=== PATIENT | female | born 1990 | race African-American/Black ===

== ENCOUNTER 2018-01-26 10:15 | Emergency (ER) | payer OTHER ==
[2018-01-26 13:16] LABS: Urine Blood NEGATIVE (NEG); Urine Glucose NEGATIVE (NEG); Urine Protein TRACE (NEG); Urine Specific Gravity 1.025 (1.005-1.030)
[2018-01-26 13:19] LABS: Absolute Lymphocytes (CBC) 0.9 K/uL (0.7-4.9); Absolute Monocytes 0.4 K/uL (0.1-1.3); Absolute Neutrophil 5.1 K/uL (1.8-8.0); Basophils % 0.4 % (0-1.3); Eosinophils % 0.9 % (0-4.4); Hematocrit 32.3 % (36.0-45.0); Lymphocytes % 13.3 % (15.3-44.8); MCV 74.8 fL (80-100); MPV 9.1 fL (7.6-11.3); Monocytes % 6.4 % (3.3-12.3); RBC Red Blood Cell Count 4.32 M/uL (3.86-4.86)
[2018-01-26] MEDS ORDERED: NA CHLORIDE 0.9% 1,000 ML ONE ×2 (13:20→14:04)
[2018-01-26 13:39] LABS: Bicarbonate 20 mEq/L (21-31); Glucose Level 66 mg/dL (65-120); Potassium 3.4 mEq/L (3.6-5.0); Sodium Level 136 mEq/L (135-145)
[2018-01-26 13:41] LABS: BUN Blood Urea Nitrogen < 5 mg/dL (6-20)
[2018-01-26] MEDS ORDERED: POTASSIUM CL SA 10 MEQ TAB PO ONE (14:03)
--- NOTE | 2018-01-26 14:35 | ER ---
Nurse's Notes [facility] Name: Lalitha Edouard Age: 27 yrs Sex: Female : 1990 Arrival Date: 01/26/2018 Time: 10:16 Bed 15 Private MD: Diagnosis: Vomiting of , unspecified Presentation: 01/26 10:44 Presenting complaint: Patient states: Sent by Dr Lawrence to have labs and fluids. Patient aj is 33 weeks , reports N/V and headaches since Wednesday. Transition of care: patient was not received from another setting of care. Onset of symptoms was January 24, 2018. Initial Sepsis Screen: Does the patient meet any 2 criteria? No. Patient's initial sepsis screen is negative. Does the patient have a suspected source of infection? No. Patient's initial sepsis screen is negative. Care prior to arrival: None. 10:44 Method Of Arrival: Ambulatory 10:44 Acuity: JUAN PABLO 3 aj Triage Assessment: 10:46 General: Appears in no apparent distress. comfortable, Behavior is calm, cooperative, aj appropriate for age. Pain: Complains of pain in face and scalp Pain currently is 6 out of 10 on a pain scale. Neuro: Level of Consciousness is awake, alert, obeys commands, Oriented to person, place, time, situation, Appropriate for age. Respiratory: Airway is patent Respiratory effort is even, unlabored, Respiratory pattern is regular, symmetrical. GI: Reports nausea, vomiting. Derm: Skin is intact, is healthy with good turgor, Skin is pink, warm \T\ dry. normal. 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 - Social history:: Smoking status: Patient/guardian denies using tobacco. Screenin:00 Abuse screen: Denies threats or abuse. Denies injuries from another. Nutritional jl7 screening: No deficits noted. Tuberculosis screening: No symptoms or risk factors identified. Fall Risk IV access (20 points). Total Yang Fall Scale indicates No Risk (0-24 pts). Assessment: 13:00 General: Appears in no apparent distress. uncomfortable, Behavior is calm, cooperative. jl7 Pain: Complains of pain in right upper quadrant and left upper quadrant Pain does not radiate. Quality of pain is described as crampy, Is continuous. Neuro: Level of Consciousness is awake, alert, obeys commands, Oriented to person, place, time, situation. Cardiovascular: Patient's skin is warm and dry. Respiratory: Airway is patent Respiratory effort is even, unlabored, Respiratory pattern is regular, symmetrical. GI: Abdomen is round Bowel sounds present X 4 quads. Reports nausea, vomiting, Patient currently denies diarrhea. : No signs and/or symptoms were reported regarding the genitourinary system. EENT: No signs and/or symptoms were reported regarding the EENT system. Derm: Skin is dry, Skin is normal, Skin temperature is warm. Musculoskeletal: No signs and/or symptoms reported regarding the musculoskeletal system. 14:00 Reassessment: No changes from previously documented assessment. Patient and/or family jl7 updated on plan of care and expected duration. Pain level reassessed. Patient is alert, oriented x 3, equal unlabored respirations, skin warm/dry/pink. 14:53 Reassessment: awaiting bolus infusion to complete before discharge. jl7 Vital Signs: 10:42 BP 110 / 65 Sitting; Pulse 81; Resp 18; Temp 98.6; Pulse Ox 100% on R/A; Weight 74.84 aj kg; Height 5 ft. 8 in. (172.72 cm); Pain 6/10; 10:44 BP 109 / 73 Standing; Pulse 71; aj 12:50 BP 108 / 69; Pulse 70; Resp 16 S; Pulse Ox 100% on R/A; jl7 13:00 BP 104 / 68; Pulse 72; Resp 16; Pulse Ox 100% ; jl7 13:39 BP 96 / 68; Pulse 70; Resp 16; Pulse Ox 100% on R/A; jl7 14:30 BP 102 / 66; Pulse 63; Resp 16 S; Pulse Ox 100% on R/A; jl7 15:00 BP 111 / 73; Pulse 77; Resp 16; Pulse Ox 100% on R/A; jl7 15:45 BP 94 / 60; Pulse 72; Resp 16; Pulse Ox 100% ; jl7 10:42 Body Mass Index 25.09 (74.84 kg, 172.72 cm) aj Vitals: 13:37 Heart Tones 152 bpm. jl7 ED Course: 10:16 Patient arrived in ED. as 10:44 Arm band placed on left wrist. Patient placed in waiting room, Patient notified of wait aj time. 10:46 Triage completed. aj 10:48 Ivone Casiano FNP-C is PHCP. kb 10:48 Jaciel Crane MD is Attending Physician. kb 12:39 Yaw Valenzuela RN is Primary Nurse. jl7 13:00 Patient has correct armband on for positive identification. Bed in low position. Call jl7 light in reach. Side rails up X 1. Pulse ox on. NIBP on. 13:00 Initial lab(s) drawn, by me, sent to lab. Urine collected: clean catch specimen, clear. jl7 Inserted saline lock: 20 gauge in right antecubital area, using aseptic technique. Blood collected. 14:34 Rell Lawrence MD is Referral Physician. kb 15:57 No provider procedures requiring assistance completed. IV discontinued, intact, jl7 bleeding controlled, No redness/swelling at site. Pressure dressing applied. Administered Medications: 13:24 Drug: NS 0.9% 1000 ml Route: IV; Rate: 1000 ml; Site: right antecubital; jl7 15:53 Follow up: IV Status: Completed infusion jl7 14:10 Drug: Potassium Chloride 20 mEq Route: PO; jl7 15:52 Follow up: Response: No adverse reaction jl7 14:11 Drug: NS 0.9% 1000 ml Route: IV; Rate: 1000 ml; Site: right antecubital; jl7 15:54 Follow up: IV Status: Completed infusion jl7 15:51 Drug: Tylenol 650 mg Route: PO; jl7 15:52 Follow up: Response: Medication administered at discharge. jl7 Outcome: 14:35 Discharge ordered by . kb 15:57 Discharged to home ambulatory. jl7 15:57 Condition: stable 15:57 Discharge instructions given to patient, Instructed on discharge instructions, follow up and referral plans. medication usage, Demonstrated understanding of instructions, follow-up care, medications, Prescriptions given X 1. 15:58 Patient left the ED. jl7 Signatures: Ivone Casiano FNP-C FNP-Ckb Myers Kate, RN RN Mary Smith Jahala, RN RN jl7 Corrections: (The following items were deleted from the chart) 10:49 10:44 Acuity: JUAN PABLO 4 trev karimi
--- NOTE | 2018-01-26 14:36 | EDPHYS ---
Physician Documentation [facility] Name: Lalitha Edouard Age: 27 yrs Sex: Female : 1990 Arrival Date: 01/26/2018 Time: 10:16 Bed 15 Private MD: ED Physician Jaciel Crane HPI: 01/26 14:33 This 27 yrs old Black Female presents to ER via Ambulatory with complaints of kb Nausea/Vomiting, Headache. 14:33 The patient presents to the emergency department with nausea, vomiting, abdominal pain. kb Onset: The symptoms/episode began/occurred 3 day(s) ago. Possible causes: . The symptoms are aggravated by nothing. The symptoms are alleviated by nothing. Associated signs and symptoms: Pertinent positives: abdominal pain, nausea, vomiting. Severity of symptoms: At their worst the symptoms were mild moderate in the emergency department the symptoms are unchanged. The patient has not experienced similar symptoms in the past. The patient has been recently seen by a physician: Dr. Lawrence earlier today, with similar presenting complaints, and was sent to the [facility] Emergency Department for further evaluation. 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 - Social history:: Smoking status: Patient/guardian denies using tobacco. ROS: 14:33 Constitutional: Negative for fever, chills, and weight loss, Cardiovascular: Negative kb for chest pain, palpitations, and edema, Respiratory: Negative for shortness of breath, cough, wheezing, and pleuritic chest pain, Back: Negative for injury and pain, : Negative for injury, bleeding, discharge, and swelling, MS/Extremity: Negative for injury and deformity, Skin: Negative for injury, rash, and discoloration. 14:33 Abdomen/GI: Positive for abdominal pain, nausea and vomiting, Negative for diarrhea, constipation, abdominal cramps, abdominal distension, anorexia. 14:33 Neuro: Positive for headache. Exam: 14:33 Constitutional: This is a well developed, well nourished patient who is awake, alert, kb and in no acute distress. Head/Face: Normocephalic, atraumatic. Chest/axilla: Normal chest wall appearance and motion. Nontender with no deformity. No lesions are appreciated. Cardiovascular: Regular rate and rhythm with a normal S1 and S2. No gallops, murmurs, or rubs. Normal PMI, no JVD. No pulse deficits. Respiratory: Lungs have equal breath sounds bilaterally, clear to auscultation and percussion. No rales, rhonchi or wheezes noted. No increased work of breathing, no retractions or nasal flaring. Abdomen/GI: Soft, non-tender, with normal bowel sounds. No distension or tympany. No guarding or rebound. No evidence of tenderness throughout. Skin: Warm, dry with normal turgor. Normal color with no rashes, no lesions, and no evidence of cellulitis. MS/ Extremity: Pulses equal, no cyanosis. Neurovascular intact. Full, normal range of motion. Neuro: Awake and alert, GCS 15, oriented to person, place, time, and situation. Cranial nerves II-XII grossly intact. Motor strength 5/5 in all extremities. Sensory grossly intact. Cerebellar exam normal. Normal gait. Vital Signs: 10:42 BP 110 / 65 Sitting; Pulse 81; Resp 18; Temp 98.6; Pulse Ox 100% on R/A; Weight 74.84 aj kg; Height 5 ft. 8 in. (172.72 cm); Pain 6/10; 10:44 BP 109 / 73 Standing; Pulse 71; aj 12:50 BP 108 / 69; Pulse 70; Resp 16 S; Pulse Ox 100% on R/A; jl7 13:00 BP 104 / 68; Pulse 72; Resp 16; Pulse Ox 100% ; jl7 13:39 BP 96 / 68; Pulse 70; Resp 16; Pulse Ox 100% on R/A; jl7 14:30 BP 102 / 66; Pulse 63; Resp 16 S; Pulse Ox 100% on R/A; jl7 15:00 BP 111 / 73; Pulse 77; Resp 16; Pulse Ox 100% on R/A; jl7 15:45 BP 94 / 60; Pulse 72; Resp 16; Pulse Ox 100% ; jl7 10:42 Body Mass Index 25.09 (74.84 kg, 172.72 cm) aj MDM: 12:41 Patient medically screened. kb 14:30 Data reviewed: vital signs, nurses notes. Data interpreted: Pulse oximetry: on room air kb is 100 %. Interpretation: normal. Counseling: I had a detailed discussion with the patient and/or guardian regarding: the historical points, exam findings, and any diagnostic results supporting the discharge/admit diagnosis, lab results, the need for outpatient follow up, a family practitioner, to return to the emergency department if symptoms worsen or persist or if there are any questions or concerns that arise at home. Physician consultation: Rell Lawrence MD was contacted at 14:00, regarding consult, patient's condition, and will see patient in office, next week, wants second liter of NS, pt to be given rx for zofran and for her to follow up in office on Wednesday. 01/26 13:01 Order name: CBC with Diff; Complete Time: 13:19 kb 01/26 13:01 Order name: Basic Metabolic Panel; Complete Time: 13:45 kb 01/26 13:03 Order name: Urine Dipstick--Ancillary (enter results); Complete Time: 13:19 mw2 01/26 13:03 Order name: Urine --Ancillary (enter results); Complete Time: 13:19 mw2 01/26 13:15 Order name: Hemoglobin A1c; Complete Time: 15:08 kb 01/26 10:48 Order name: Urine Dipstick-Ancillary (obtain specimen); Complete Time: 12:59 kb 01/26 13:01 Order name: FHT's; Complete Time: 13:37 kb 01/26 13:46 Order name: Diet Regular; Complete Time: 13:46 kb Administered Medications: 13:24 Drug: NS 0.9% 1000 ml Route: IV; Rate: 1000 ml; Site: right antecubital; jl7 15:53 Follow up: IV Status: Completed infusion 14:10 Drug: Potassium Chloride 20 mEq Route: PO; 15:52 Follow up: Response: No adverse reaction 14:11 Drug: NS 0.9% 1000 ml Route: IV; Rate: 1000 ml; Site: right antecubital; jl7 15:54 Follow up: IV Status: Completed infusion 15:51 Drug: Tylenol 650 mg Route: PO; 15:52 Follow up: Response: Medication administered at discharge. jl7 Disposition: 16:41 Co-signature as Attending Physician, Jaciel Crane MD. rn Disposition: 01/26/18 14:35 Discharged to Home. Impression: Vomiting of , unspecified. - Condition is Stable. - Discharge Instructions: Morning Sickness, [id number]. - Prescriptions for Zofran 8 mg Oral Tablet - take 0.5 tablet by ORAL route every 6 hours As needed; 20 tablet. - Medication Reconciliation Form, Thank You Letter, Antibiotic Education, Prescription Opioid Use form. - Follow up: Emergency Department; When: As needed; Reason: Worsening of condition. Follow up: Rell Lawrence MD; When: on Wednesday; Reason: Recheck today's complaints, Continuance of care, Re-evaluation by your physician. Signatures: Dispatcher [employer] Ivone Perera, CLIFFORD SIMONP-Kate Rey RN RN aj Nieto, Roman, MD MD rn Leal, Jahala, RN RN jlRobert
[2018-01-26 15:04] LABS: A1c Component 0.33 mg/dL
[2018-01-26] MEDS ORDERED: ACETAMINOPHEN 325 MG TABLET ONE (15:42)
[2018-01-26 16:04] VITALS: TEMP 98.6; O2SAT 100
[2018-01-26 16:12] VITALS: BP 94/60
== END 2018-01-26 15:58 | disposition home or self-care (01) ==
LOC: ER 10:15
DX: O21.9 Vomiting of pregnancy, unspecified (principal); Z3A.33 33 weeks gestation of pregnancy; R51 Headache
CPT/HCPCS: 36415; 80048; 81003; 81025; 83036; 85025; 96360; 96361; 99284; J7030

== ENCOUNTER 2018-03-05 01:44 | Inpatient (IN) | payer OTHER ==
[2018-03-05] MEDS ORDERED: PROMETHAZINE 25 MG/ML VIAL ONE (01:52)
[2018-03-05] MEDS ORDERED: BUTORPHANOL 1 MG/ML INJ ONE (01:52)
[2018-03-05] MEDS ORDERED: OXYTOCIN/LR 20 UNIT/1,000 ML BAG IV ONE (01:52)
[2018-03-05] MEDS ORDERED: LIDOCAINE 1% 20 ML MDV ONE (02:04)
[2018-03-05] MEDS ORDERED: METHYLERGONOVINE 0.2MG/ML AMP IM ONE (02:05)
[2018-03-05] MEDS ORDERED: CARBOPROST TROME 250 MCG/ML IM ONE (02:05)
[2018-03-05] MEDS ORDERED: MEPERIDINE HCL 25 MG/0.5 ML ONE (02:17)
[2018-03-05] MEDS ORDERED: DOCUSATE NA/SENNA CONC 1 TAB PO PRN (02:32)
[2018-03-05] MEDS ORDERED: BISACODYL 10 MG RECTAL SUPP RECT PRN (02:32)
[2018-03-05] MEDS ORDERED: Oxycodone HCl/Acetaminophen 1 TAB TAB PO PRN (02:32)
[2018-03-05] MEDS ORDERED: ACETAMINOPHEN 500 MG TAB PO PRN (02:32)
[2018-03-05] MEDS ORDERED: DIPHENHYDRAMINE 25 MG TAB/CAP PO PRN (02:32)
[2018-03-05] MEDS ORDERED: OXYTOCIN/LR 20 UNIT/1,000 ML BAG IV SCH (03:00)
--- NOTE | 2018-03-05 04:07 | DN ---
Surgeon: Rell Lawrence MD This is a 27-year-old 3, para 2, 38 weeks and 6 days. Scheduled for induction on Wednesday. Ca me in in active rapidly advancing labor 5-6 cm, 100% effaced, membranes bulging. On admission, penic illin prophylaxis started. The patient went rapidly to complete. Second stage of about 20-25 minutes . Spontaneous vaginal delivery of an estimated 6 and 1/2 pounds female, Apgars 9 and 9 or possibly e tamia 9, 10. No episiotomy. No lacerations. Patient received Stadol during the labor. After deliver y of the baby and clamping of the cord, 25 mg Demerol IV. She was delivered, the placenta was inspec gayatri and noted to be intact. Less than 200 cc blood loss. Final Diagnoses: Term intrauterine 38 weeks 6 days, vaginal delivery, penicillin prophylax is. Rh negative. RhoGAM pending. Maternal anemia preceding admission. SCOTT/PAUL Voice ID: [id number] Report ID: [id number]
[2018-03-05] MEDS ORDERED: PENICILLIN G POT 5 MU/100 ML BAG IV ONE (04:12)
[2018-03-05] MEDS: Oxycodone HCl/Acetaminophen 1 TAB TAB PO PRN ×2 (04:15→18:21)
[2018-03-05 05:00] VITALS: BMI 25.5
[2018-03-05] MEDS ORDERED: Ringers Lactate 1,000 ML IV ONE (05:40)
[2018-03-05] MEDS ORDERED: Rho(D) IG (HUMAN) 300 MCG SYR IM ONE (11:00)
[2018-03-05] MEDS: IBUPROFEN 200 MG TAB PO PRN (12:08)
--- NOTE | 2018-03-05 22:28 | DS ---
Hospital Course: A 27-year-old 3, para 2, 38 weeks 6 days, Rh negative, anemic cesario or to admission. Positive beta strep screen. Came into labor, 5.5 to 6 cm, 100% effaced, bulging me mbranes, faviola every 1 to 2 minutes, progressed rapidly. Penicillin prophylaxis was used prior to delivery of the baby. She delivered of a 6-pound 6-ounce female. Apgars 9 and 10. A straight o cciput posterior. No lacerations worthy of suturing. Schultze delivery of the placenta, which was i nspected, and noted to be intact and normal. Less than 250 cc blood loss. is afebrile, a mbulating and voiding. Lochia is normal. We will be dismissed tomorrow to call my office Wednesday for followup appointment in 6 weeks. To report any temperature elevation of 100 degrees or greater, sev ere pain, heavy bleeding, or any other type of abnormalities. Dismissed with tramadol for analgesia, although she may elect to take Motrin instead. Full discussion. She is Rh negative. The baby is R h positive. She will receive RhoGAM sometime today. She has had her Tdap immunization during the pr egnancy. Final Diagnoses: Intrauterine gestation, 38 weeks 6 days, spontaneous labor, vaginal delivery, occip ut posterior. Penicillin prophylaxis. Rh negative. RhoGAM pending. Tdap has been administered dur ing the . SCOTT/PAUL Voice ID: [id number] Report ID: [id number]
[2018-03-06] MEDS: IBUPROFEN 200 MG TAB PO PRN (03:45)
[2018-03-06 13:37] VITALS: BP 122/72; TEMP 98.3
== END 2018-03-06 14:06 | disposition home or self-care (01) | DRG 775 ==
LOC: 2ND-WC 01:44
PROVIDERS: ADMIT Specialist; ATTEND Specialist
PROC: 10E0XZZ Delivery of Products of Conception, External Approach (ICD-10-PCS; principal; 2018-03-05)
PROC: 10907ZC Drainage of Amniotic Fluid, Therapeutic from Products of Conception, Via Natural or Artificial Opening (ICD-10-PCS; 2018-03-05)
PROC: 3E0234Z Introduction of Serum, Toxoid and Vaccine into Muscle, Percutaneous Approach (ICD-10-PCS; 2018-03-05)
DX: O99.824 Streptococcus B carrier state complicating childbirth (principal); O36.0930 Maternal care for other rhesus isoimmunization, third trimester, not applicable or unspecified; O99.02 Anemia complicating childbirth; Z3A.38 38 weeks gestation of pregnancy; Z37.0 Single live birth
CPT/HCPCS: 85461; 86850; 86901; J0595; J2175; J2210; J2550; J2590; J2790

== ENCOUNTER 2019-02-25 08:38 | Emergency (ER) | payer OTHER ==
[2019-02-25] MEDS ORDERED: DIPHENHYDRAMINE 50 MG/ML VIAL ONE (09:30)
[2019-02-25] MEDS ORDERED: METOCLOPRAMIDE 10 MG/2mL INJ ONE (09:30)
[2019-02-25] MEDS ORDERED: DEXAMETHASONE 10 MG/ML VIAL ONE (09:30)
[2019-02-25 09:44] LABS: Urine Blood NEGATIVE (NEG); Urine Glucose NEGATIVE (NEG); Urine Protein NEGATIVE (NEG); Urine Specific Gravity 1.015 (1.005-1.030); Urine pH 7.5 (5.0-7.0)
--- NOTE | 2019-02-25 10:45 | EDPHYS ---
Physician Documentation [facility] Name: Lalitha Valdes Age: 28 yrs Sex: Female : 1990 Arrival Date: 02/25/2019 Time: 08:43 Bed 5 Private MD: ED Physician Jonathan Merritt HPI: 02/25 10:41 This 28 yrs old Black Female presents to ER via Ambulatory with complaints of Migraine. jr8 10:41 The patient complains of pain to the diffuse. The patient describes the headache as jr8 pounding. Onset: The symptoms/episode began/occurred gradually, 1 week(s) ago, and became worse and became persistent. Associated signs and symptoms: Pertinent positives: nausea, Photophobia vomiting. Severity of symptoms: At its worst the pain was moderate, in the emergency department the pain is unchanged. Headache History: The patient has had previous headaches and this one is more severe than previous episodes. The symptoms are alleviated by nothing. the symptoms are aggravated by lights, movement, noise. It is unknown whether or not the patient has had similar symptoms in the past. It is unknown whether or not the patient has recently seen a physician. 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 - Social history:: Smoking status: Patient uses tobacco products, Patient/guardian denies using alcohol. - Ebola Screening: : Patient negative for fever greater than or equal to 101.5 degrees Fahrenheit, and additional compatible Ebola Virus Disease symptoms Patient denies exposure to infectious person Patient denies travel to an Ebola-affected area in the 21 days before illness onset. ROS: 10:41 Eyes: Negative for injury, pain, redness, and discharge, ENT: Negative for injury, jr8 pain, and discharge, Neck: Negative for injury, pain, and swelling, Cardiovascular: Negative for chest pain, palpitations, and edema, Respiratory: Negative for shortness of breath, cough, wheezing, and pleuritic chest pain, Abdomen/GI: Negative for abdominal pain, nausea, vomiting, diarrhea, and constipation, Back: Negative for injury and pain, MS/Extremity: Negative for injury and deformity, Skin: Negative for injury, rash, and discoloration. 10:41 Neuro: Positive for headache, Negative for altered mental status, dizziness, gait disturbance, hearing loss, loss of consciousness, numbness, seizure activity, speech changes, syncope, near syncope, tingling, tinnitus, tremor, visual changes, weakness. Exam: 10:41 Eyes: Pupils equal round and reactive to light, extra-ocular motions intact. Lids and jr8 lashes normal. Conjunctiva and sclera are non-icteric and not injected. Cornea within normal limits. Periorbital areas with no swelling, redness, or edema. ENT: Nares patent. No nasal discharge, no septal abnormalities noted. Tympanic membranes are normal and external auditory canals are clear. Oropharynx with no redness, swelling, or masses, exudates, or evidence of obstruction, uvula midline. Mucous membranes moist. Neck: Trachea midline, no thyromegaly or masses palpated, and no cervical lymphadenopathy. Supple, full range of motion without nuchal rigidity, or vertebral point tenderness. No Meningismus. Cardiovascular: Regular rate and rhythm with a normal S1 and S2. No gallops, murmurs, or rubs. Normal PMI, no JVD. No pulse deficits. Respiratory: Lungs have equal breath sounds bilaterally, clear to auscultation and percussion. No rales, rhonchi or wheezes noted. No increased work of breathing, no retractions or nasal flaring. Abdomen/GI: Soft, non-tender, with normal bowel sounds. No distension or tympany. No guarding or rebound. No evidence of tenderness throughout. Back: No spinal tenderness. No costovertebral tenderness. Full range of motion. Skin: Warm, dry with normal turgor. Normal color with no rashes, no lesions, and no evidence of cellulitis. MS/ Extremity: Pulses equal, no cyanosis. Neurovascular intact. Full, normal range of motion. Neuro: Awake and alert, GCS 15, oriented to person, place, time, and situation. Cranial nerves II-XII grossly intact. Motor strength 5/5 in all extremities. Sensory grossly intact. Cerebellar exam normal. Normal gait. Vital Signs: 09:01 BP 121 / 85; Pulse 67; Resp 18; Temp 98.6(O); Pulse Ox 100% on R/A; Weight 74.39 kg; hj Height 5 ft. 8 in. (172.72 cm); 10:10 BP 125 / 80; Pulse 65; Resp 18; Pulse Ox 100% on R/A; hj 09:01 Body Mass Index 24.94 (74.39 kg, 172.72 cm) hj MDM: 08:56 Patient medically screened. [facility] 10:43 Data reviewed: vital signs, nurses notes, and as a result, I will discharge patient. [facility] Data interpreted: Pulse oximetry: on room air is 100 %. Interpretation: normal. Counseling: I had a detailed discussion with the patient and/or guardian regarding: the historical points, exam findings, and any diagnostic results supporting the discharge/admit diagnosis, the need for outpatient follow up, a family practitioner, to return to the emergency department if symptoms worsen or persist or if there are any questions or concerns that arise at home. Response to treatment: the patient's symptoms have resolved after treatment. 02/25 09:15 Order name: Urine Dipstick--Ancillary (enter results); Complete Time: 10: 02/25 09:15 Order name: Urine --Ancillary (enter results); Complete Time: 10: 02/25 09:31 Order name: Glucose, Ancillary Testing; Complete Time: : [facility] 02/25 09:31 Order name: Glucose, Ancillary Testing [facility] 02/25 09:09 Order name: IV; Complete Time: [facility] 02/25 09:13 Order name: Urine Test (obtain specimen); Complete Time: : [facility] 02/25 09:13 Order name: Urine Dipstick-Ancillary (obtain specimen); Complete Time: : [facility] Administered Medications: : Drug: Reglan 10 mg Route: IVP; Site: right antecubital; hj 10:00 Follow up: Response: No adverse reaction; Pain is decreased Drug: Benadryl 25 mg Route: IVP; Site: right antecubital; hj 10:00 Follow up: Response: No adverse reaction; Pain is decreased Drug: Decadron - Dexamethasone 10 mg Route: IVP; Site: right antecubital; hj 10:00 Follow up: Response: No adverse reaction; Pain is decreased Point of Care Testing: Blood Glucose: 09:28 Blood Glucose: 87 mg/dL; tr5 Ranges: Critical Glucose Levels:Adult <50 mg/dl or >400 mg/dl <40 mg/dl or >180 mg/dl Disposition: 02/25/19 10:44 Discharged to Home. Impression: Migraine. - Condition is Stable. - Discharge Instructions: Migraine Headache. - Prescriptions for Fioricet 50- 325-40 mg Oral tablet - take 2 tablet by ORAL route every 4 hours as needed not to exceed 6 tablets per 24hrs; 20 tablet. - Medication Reconciliation Form, Thank You Letter, Antibiotic Education, Prescription Opioid Use form. - Follow up: Private Physician; When: As needed; Reason: Recheck today's complaints, Continuance of care, Re-evaluation by your physician. - Problem is new. - Symptoms are resolved. Addendum: 02/28/2019 08:50 Co-signature as Attending Physician, Jonathan Merritt MD I agree with the assessment and c solano plan of care. Signatures: Dispatcher [employer] EDUT Jonathan Merritt MD MD cha Roszak, Josh, PA PA jr8 Zay Chavis RN RN hj Corrections: (The following items were deleted from the chart) 02/25 10:51 10:44 02/25/2019 10:44 Discharged to Home. Impression: Migraine. Condition is Stable. hj Forms are Medication Reconciliation Form, Thank You Letter, Antibiotic Education, Prescription Opioid Use. Follow up: Private Physician; When: As needed; Reason: Recheck today's complaints, Continuance of care, Re-evaluation by your physician. Problem is new. Symptoms are resolved. jr8
--- NOTE | 2019-02-25 10:45 | ER ---
Nurse's Notes [facility] Name: Lalihta Valdes Age: 28 yrs Sex: Female : 1990 Arrival Date: 02/25/2019 Time: 08:43 Bed 5 Private MD: Diagnosis: Migraine Presentation: 02/25 08:58 Presenting complaint: Patient states: i have this migraine headache on the L side of my hj head, face for a week now and its not going away, reports N/V;. Transition of care: patient was not received from another setting of care. Onset of symptoms was February 25, 2019. Risk Assessment: Do you want to hurt yourself or someone else? Patient reports no desire to harm self or others. Initial Sepsis Screen: Does the patient meet any 2 criteria? No. Patient's initial sepsis screen is negative. Does the patient have a suspected source of infection? No. Patient's initial sepsis screen is negative. Care prior to arrival: None. 08:58 Method Of Arrival: Ambulatory 08:58 Acuity: JUAN PABLO 3 hj Triage Assessment: 09:00 General: Appears in no apparent distress. uncomfortable, Behavior is calm, cooperative, hj appropriate for age. Pain: Complains of pain in head, L face. 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 - Social history:: Smoking status: Patient uses tobacco products, Patient/guardian denies using alcohol. - Ebola Screening: : Patient negative for fever greater than or equal to 101.5 degrees Fahrenheit, and additional compatible Ebola Virus Disease symptoms Patient denies exposure to infectious person Patient denies travel to an Ebola-affected area in the 21 days before illness onset. Screenin:00 Abuse screen: Denies threats or abuse. Denies injuries from another. Nutritional hj screening: No deficits noted. Tuberculosis screening: No symptoms or risk factors identified. Fall Risk None identified. Assessment: 09:02 General: Appears in no apparent distress. uncomfortable, Behavior is calm, cooperative, hj appropriate for age. Pain: Complains of pain in head, L face. Neuro: Level of Consciousness is awake, alert, obeys commands, Oriented to person, place, time, situation, Appropriate for age. Cardiovascular: Capillary refill < 3 seconds Patient's skin is warm and dry. Respiratory: Airway is patent Respiratory effort is even, unlabored, Respiratory pattern is regular, symmetrical. GI: No signs and/or symptoms were reported involving the gastrointestinal system. : No signs and/or symptoms were reported regarding the genitourinary system. EENT: No signs and/or symptoms were reported regarding the EENT system. Derm: No signs and/or symptoms reported regarding the dermatologic system. Musculoskeletal: No signs and/or symptoms reported regarding the musculoskeletal system. 10:10 Reassessment: Patient and/or family updated on plan of care and expected duration. Pain hj level reassessed. Patient is alert, oriented x 3, equal unlabored respirations, skin warm/dry/pink. awating POC;. Vital Signs: 09:01 BP 121 / 85; Pulse 67; Resp 18; Temp 98.6(O); Pulse Ox 100% on R/A; Weight 74.39 kg; hj Height 5 ft. 8 in. (172.72 cm); 10:10 BP 125 / 80; Pulse 65; Resp 18; Pulse Ox 100% on R/A; hj 09:01 Body Mass Index 24.94 (74.39 kg, 172.72 cm) ED Course: 08:43 Patient arrived in ED. rg4 08:54 Fausto Iniguez [facility] is [facility]. jr8 08:54 Jonathan Merritt MD is Attending Physician. jr8 08:58 Zay Chavis, LESLIE is Primary Nurse. hj 08:58 Triage completed. hj 09:00 Arm band placed on right wrist. hj 09:00 Patient has correct armband on for positive identification. Bed in low position. Call light in reach. Side rails up X 1. 09:26 Inserted saline lock: 22 gauge in right antecubital area, using aseptic technique. hj 09:51 Glucose, Ancillary Testing Sent. tr5 10:51 No provider procedures requiring assistance completed. IV discontinued, intact, hj bleeding controlled, No redness/swelling at site. Pressure dressing applied. Administered Medications: 09:26 Drug: Reglan 10 mg Route: IVP; Site: right antecubital; hj 10:00 Follow up: Response: No adverse reaction; Pain is decreased 09:26 Drug: Benadryl 25 mg Route: IVP; Site: right antecubital; hj 10:00 Follow up: Response: No adverse reaction; Pain is decreased hj :26 Drug: Decadron - Dexamethasone 10 mg Route: IVP; Site: right antecubital; hj 10:00 Follow up: Response: No adverse reaction; Pain is decreased Point of Care Testing: Blood Glucose: : Blood Glucose: 87 mg/dL; tr5 Ranges: Outcome: 10:44 Discharge ordered by . mita 10:51 Discharged to home ambulatory. 10:51 Condition: stable 10:51 Discharge instructions given to patient, Instructed on discharge instructions, follow up and referral plans. medication usage, Demonstrated understanding of instructions, follow-up care, medications, Prescriptions given X 1. 10:51 Patient left the ED. Signatures: Fausto Iniguez PA PA jr8 Zay Chavis RN RN Priya Chen Tommie, RN RN tr5
[2019-02-25 11:06] VITALS: TEMP 98.6; O2SAT 100
[2019-02-25 11:07] VITALS: BP 125/80
== END 2019-02-25 10:51 | disposition home or self-care (01) ==
LOC: ER 08:38
DX: G43.909 Migraine, unspecified, not intractable, without status migrainosus (principal); Z72.0 Tobacco use
CPT/HCPCS: 81003; 81025; 82962; 96374; 96375; 99284; J1100; J2765

== ENCOUNTER 2019-11-22 21:03 | Emergency (ER) | payer OTHER ==
[2019-11-22 22:04] LABS: Urine Blood NEGATIVE (NEG); Urine Glucose NEGATIVE (NEG); Urine Protein NEGATIVE (NEG); Urine Specific Gravity 1.015 (1.005-1.030)
[2019-11-22 22:15] LABS: Urine Culture Reflex Order NOT NEEDED
[2019-11-22 22:16] LABS: Urine Bacteria <20 /HPF (<20); Urine RBC NONE SEEN /HPF (NONE SEEN)
--- NOTE | 2019-11-22 22:41 | EDPHYS ---
Physician Documentation [facility] Name: Lalitha Valdes Age: 29 yrs Sex: Female : 1990 Arrival Date: 11/22/2019 Time: 21:05 Bed 18 Private MD: ED Physician Mc Muhammad HPI: 11/22 21:44 This 29 yrs old Black Female presents to ER via Wheelchair with complaints of Numbness snw Of Arm, Numbness Of Lips. 21:45 The patient has experienced near-syncope, felt faint, felt generally weak, felt like snw heart was pounding. Onset: The symptoms/episode began/occurred suddenly. Duration: The patient has had multiple episodes, that last an unknown period of time. Context: the episode(s) was witnessed, by a friend, occurred at home, occurred while the patient was standing. Associated injury: The patient did not suffer any apparent associated injury. Associated signs and symptoms: Pertinent positives: palpitations, tingling. Current symptoms: Currently, the patient is not experiencing any symptoms. The patient has experienced similar episodes in the past, "only during ". The patient has not recently seen a physician. no menses post last depo shot - lmp May 2019. 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 - Coronavirus screen:: The patient has NOT traveled to [place] in the past 14 days. The patient has NOT had contact with known/suspected case of Coronavirus?. - Social history:: Smoking status: Patient reports the use of cigarette tobacco products, 3-4 cigarettes a day. - Ebola Screening: : Patient negative for fever greater than or equal to 101.5 degrees Fahrenheit, and additional compatible Ebola Virus Disease symptoms Patient denies exposure to infectious person Patient denies travel to an Ebola-affected area in the 21 days before illness onset No symptoms or risks identified at this time. ROS: 21:43 Eyes: Negative for injury, pain, redness, and discharge, ENT: Negative for injury, snw pain, and discharge, Neck: Negative for injury, pain, and swelling, Cardiovascular: Negative for chest pain, palpitations, and edema, Respiratory: Negative for shortness of breath, cough, wheezing, and pleuritic chest pain, Abdomen/GI: Negative for abdominal pain, nausea, vomiting, diarrhea, and constipation, Back: Negative for injury and pain, : Negative for injury, bleeding, discharge, and swelling, MS/Extremity: Negative for injury and deformity, Skin: Negative for injury, rash, and discoloration. 21:43 Constitutional: Positive for fatigue, malaise. 21:43 Neuro: Positive for numbness, near syncope, tingling, weakness, of the upper and lower extremities. Exam: 21:43 Constitutional: This is a well developed, well nourished patient who is awake, alert, snw and in no acute distress. Head/Face: Normocephalic, atraumatic. Eyes: Pupils equal round and reactive to light, extra-ocular motions intact. Lids and lashes normal. Conjunctiva and sclera are non-icteric and not injected. Cornea within normal limits. Periorbital areas with no swelling, redness, or edema. ENT: Nares patent. No nasal discharge, no septal abnormalities noted. Tympanic membranes are normal and external auditory canals are clear. Oropharynx with no redness, swelling, or masses, exudates, or evidence of obstruction, uvula midline. Mucous membranes moist. Neck: Trachea midline, no thyromegaly or masses palpated, and no cervical lymphadenopathy. Supple, full range of motion without nuchal rigidity, or vertebral point tenderness. No Meningismus. Chest/axilla: Normal chest wall appearance and motion. Nontender with no deformity. No lesions are appreciated. Cardiovascular: Regular rate and rhythm with a normal S1 and S2. No gallops, murmurs, or rubs. Normal PMI, no JVD. No pulse deficits. Respiratory: Lungs have equal breath sounds bilaterally, clear to auscultation and percussion. No rales, rhonchi or wheezes noted. No increased work of breathing, no retractions or nasal flaring. Abdomen/GI: Soft, non-tender, with normal bowel sounds. No distension or tympany. No guarding or rebound. No evidence of tenderness throughout. Back: No spinal tenderness. No costovertebral tenderness. Full range of motion. Skin: Warm, dry with normal turgor. Normal color with no rashes, no lesions, and no evidence of cellulitis. MS/ Extremity: Pulses equal, no cyanosis. Neurovascular intact. Full, normal range of motion. Neuro: Awake and alert, GCS 15, oriented to person, place, time, and situation. Cranial nerves II-XII grossly intact. Motor strength 5/5 in all extremities. Sensory grossly intact. Cerebellar exam normal. Normal gait. Psych: Awake, alert, with orientation to person, place and time. Behavior, mood, and affect are within normal limits. Vital Signs: 21:17 BP 132 / 79; Pulse 100; Resp 17 S; Temp 98.1(TE); Pulse Ox 100% on R/A; Weight 78.02 kg ca1 (R); Height 5 ft. 8 in. (172.72 cm) (R); 21:58 BP 103 / 68 LA Supine (auto/reg); Pulse 79 MON; Resp 14 S; Pulse Ox 100% on R/A; ds4 22:01 BP 107 / 73 LA Sitting (auto/reg); Pulse 73 MON; Resp 14 S; Pulse Ox 99% on R/A; ds4 22:04 BP 104 / 70 LA Standing (auto/reg); Pulse 74 MON; Resp 14 S; Pulse Ox 98% on R/A; ds4 21:17 Body Mass Index 26.15 (78.02 kg, 172.72 cm) ca1 MDM: 21:26 Patient medically screened. snw 22:41 Data reviewed: vital signs, nurses notes. Data interpreted: Pulse oximetry: on room air snw is 98 %. Interpretation: normal. Counseling: I had a detailed discussion with the patient and/or guardian regarding: the historical points, exam findings, and any diagnostic results supporting the discharge/admit diagnosis, lab results, the need for outpatient follow up, to return to the emergency department if symptoms worsen or persist or if there are any questions or concerns that arise at home. Special discussion: Based on the history and exam findings, there is no indication for further emergent testing or inpatient evaluation. I discussed with the patient/guardian the need to see the primary care provider for further evaluation of the symptoms. 11/22 21:22 Order name: Urine Culture snw 11/22 21:22 Order name: Urine Microscopic Only; Complete Time: 22:18 snw 11/22 21:31 Order name: Flu; Complete Time: 22:14 snw 11/22 21:31 Order name: Strep; Complete Time: 22:39 snw 11/22 21:50 Order name: Urine Dipstick--Ancillary (enter results); Complete Time: 22:08 mw2 11/22 21:50 Order name: Urine --Ancillary (enter results); Complete Time: 22:08 mw2 11/22 21:14 Order name: EKG; Complete Time: 21:14 ca1 11/22 21:14 Order name: EKG - Nurse/Tech; Complete Time: 21:19 ca1 11/22 21:22 Order name: Urine Test (obtain specimen); Complete Time: 21:46 snw 11/22 21:22 Order name: Urine Dipstick-Ancillary (obtain specimen); Complete Time: 21:46 snw 11/22 21:31 Order name: FSBS; Complete Time: 21:53 snw 11/22 21:31 Order name: Orthostatics; Complete Time: 21:53 snw 11/22 22:10 Order name: Glucose, Ancillary Testing; Complete Time: 22:12 EDMS 11/22 22:32 Order name: Throat Culture EDMS Administered Medications: No medications were administered Disposition: 11/23 08:22 Co-signature as Attending Physician, Mc Muhammad MD I agree with the assessment and tw4 plan of care. Disposition: 11/22/19 22:40 Discharged to Home. Impression: Malaise and fatigue. - Condition is Stable. - Discharge Instructions: Fatigue. - Work release form, Medication Reconciliation Form, Thank You Letter, Antibiotic Education, Prescription Opioid Use form. - Follow up: Emergency Department; When: As needed; Reason: Worsening of condition. Signatures: Dispatcher [employer] EDMS Eliane Randle FNP-C SHINGLE GRADER-Brian Benavidez Terrence, MD MD tw4 Kalli Evans RN RN ca1 Corrections: (The following items were deleted from the chart) 11/22 22:50 22:40 11/22/2019 22:40 Discharged to Home. Impression: Malaise and fatigue. Condition wh is Stable. Forms are Medication Reconciliation Form, Thank You Letter, Antibiotic Education, Prescription Opioid Use. Follow up: Emergency Department; When: As needed; Reason: Worsening of condition. snw
--- NOTE | 2019-11-22 22:41 | ER ---
Nurse's Notes [facility] Name: Lalitha Valdes Age: 29 yrs Sex: Female : 1990 Arrival Date: 11/22/2019 Time: 21:05 Bed 18 Private MD: Diagnosis: Malaise and fatigue Presentation: 11/22 21:14 Presenting complaint: Patient states: at 2000 tonight, I felt like I was going to pass ca1 out. I felt tingly on my left side, my arms and legs, but sometimes it would also go to the R. I had previous episodes of this when I was . Transition of care: patient was not received from another setting of care. Onset of symptoms was November 22, 2019. Risk Assessment: Do you want to hurt yourself or someone else? Patient reports no desire to harm self or others. Initial Sepsis Screen: Does the patient meet any 2 criteria? No. Patient's initial sepsis screen is negative. Does the patient have a suspected source of infection? No. Patient's initial sepsis screen is negative. Care prior to arrival: None. 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 - Coronavirus screen:: The patient has NOT traveled to [place] in the past 14 days. The patient has NOT had contact with known/suspected case of Coronavirus?. - Social history:: Smoking status: Patient reports the use of cigarette tobacco products, 3-4 cigarettes a day. - Ebola Screening: : Patient negative for fever greater than or equal to 101.5 degrees Fahrenheit, and additional compatible Ebola Virus Disease symptoms Patient denies exposure to infectious person Patient denies travel to an Ebola-affected area in the 21 days before illness onset No symptoms or risks identified at this time. Screenin:30 Abuse screen: Denies threats or abuse. Denies injuries from another. Nutritional wh screening: No deficits noted. Tuberculosis screening: No symptoms or risk factors identified. Fall Risk None identified. Assessment: 21:20 General: Appears in no apparent distress. Behavior is calm, cooperative, appropriate wh for age. Pain: Denies pain. Neuro: Level of Consciousness is awake, alert, obeys commands, Oriented to person, place, time, situation, Appropriate for age Reports numbness paresthesias. Cardiovascular: Capillary refill < 3 seconds. Respiratory: Airway is patent Respiratory effort is even, unlabored, Respiratory pattern is regular, symmetrical. GI: Abdomen is flat, non-distended. : No signs and/or symptoms were reported regarding the genitourinary system. EENT: No signs and/or symptoms were reported regarding the EENT system. Derm: Skin is intact, is healthy with good turgor, Skin is pink, warm \T\ dry. normal. Musculoskeletal: Circulation, motion, and sensation intact. 22:30 Reassessment: Patient appears in no apparent distress at this time. No changes from previously documented assessment. Patient and/or family updated on plan of care and expected duration. Pain level reassessed. Patient is alert, oriented x 3, equal unlabored respirations, skin warm/dry/pink. Vital Signs: 21:17 BP 132 / 79; Pulse 100; Resp 17 S; Temp 98.1(TE); Pulse Ox 100% on R/A; Weight 78.02 kg ca1 (R); Height 5 ft. 8 in. (172.72 cm) (R); 21:58 BP 103 / 68 LA Supine (auto/reg); Pulse 79 MON; Resp 14 S; Pulse Ox 100% on R/A; ds4 22:01 BP 107 / 73 LA Sitting (auto/reg); Pulse 73 MON; Resp 14 S; Pulse Ox 99% on R/A; ds4 22:04 BP 104 / 70 LA Standing (auto/reg); Pulse 74 MON; Resp 14 S; Pulse Ox 98% on R/A; ds4 21:17 Body Mass Index 26.15 (78.02 kg, 172.72 cm) ca1 ED Course: 21:05 Patient arrived in ED. cl3 21:08 Brian Morin is Primary Nurse. wh 21:16 Triage completed. ca1 21:17 Arm band placed on right wrist. ca1 21:21 Eliane Randle FNP-C is PHCP. snw 21:21 Mc Muhammad MD is Attending Physician. snw 21:30 Patient has correct armband on for positive identification. Bed in low position. Call light in reach. Side rails up X 1. Pulse ox on. NIBP on. 21:50 Strep Sent. ds4 21:50 Flu Sent. ds4 21:51 Urine Culture Sent. ds4 21:51 Urine Microscopic Only Sent. ds4 22:06 Strep Sent. ds4 22:06 Flu Sent. ds4 Administered Medications: No medications were administered Outcome: 22:40 Discharge ordered by . snw 22:50 Patient left the ED. Signatures: Eliane Randle, FUEL DOCK ATTENDANT-C FUEL DOCK ATTENDANT-CsnDudley [place] ds4 Brian Morin Kalli Evans, RN RN ca1 Chaparro Bautista cl3
[2019-11-22 23:29] VITALS: TEMP 98.1
[2019-11-22 23:33] VITALS: BP 104/70; O2SAT 98
--- NOTE | 2019-11-23 07:19 | EKG ---
Test Date: 2019-11-22 Test Time: 21:20:38 Temp Recruiter: DAYANA MEASUREMENT RESULTS: Intervals: Rate: 87 PA: 158 QRSD: 86 QT: 356 QTc: 428 [place]: P: 61 PA: 158 QRS: 60 T: 22 INTERPRETIVE STATEMENTS: Normal sinus rhythm Normal ECG No previous ECG available for comparison Electronically Signed On 11-23-19 07:19:08 BLOOD BANK CREDIT CLERK by Lucho Cruz
== END 2019-11-22 22:50 | disposition home or self-care (01) ==
LOC: ER 21:03
DX: R53.81 Other malaise (principal); R53.83 Other fatigue
CPT/HCPCS: 81003; 81015; 81025; 82947; 87070; 87081; 87086; 87088; 87804; 93005; 99283

== ENCOUNTER 2021-08-07 20:18 | Emergency (ER) | payer OTHER ==
[2021-08-07 21:16] LABS: Urine Blood Negative (Negative); Urine Glucose Negative (Negative); Urine Protein Negative (Negative); Urine Specific Gravity 1.025 (1.005-1.030)
[2021-08-07 21:21] LABS: Absolute Lymphocytes (CBC) 2.3 K/uL (0.7-4.9); Basophils % 0.9 % (0-1.3); Hematocrit 35.9 % (36.0-45.0); Lymphocytes % 42.8 % (15.3-44.8); MPV 8.8 fL (7.6-11.3); RBC Red Blood Cell Count 4.88 M/uL (3.86-4.86)
[2021-08-07] MEDS ORDERED: FAMOTIDINE 20 MG/2 ML VIAL IV ONE (21:21)
[2021-08-07] MEDS ORDERED: DICYCLOMINE HCL 10 MG CAP ONE (21:21)
[2021-08-07] MEDS ORDERED: NA CHLORIDE 0.9% 1,000 ML ONE (21:21)
[2021-08-07] MEDS ORDERED: ONDANSETRON 4 MG/2 ML VIAL ONE (21:21)
[2021-08-07 21:24] LABS: Urine Specific Gravity/Preg 1.025 (1.005-1.030)
[2021-08-07 21:33] LABS: ALT/SGPT 61 U/L (12-78); AST/SGOT 34 U/L (15-37); Albumin 3.6 g/dL (3.4-5.0); Alkaline Phosphatase 68 U/L (45-117); BUN Blood Urea Nitrogen 9 mg/dL (7-18); Bicarbonate 24 mmol/L (21-32); Bilirubin Direct < 0.1 mg/dL (0-0.2); Bilirubin Total 0.5 mg/dL (0.2-1.0); Glucose Level 92 mg/dL (74-106); Lipase 129 U/L (73-393); Potassium 3.4 mmol/L (3.5-5.1); Protein, Total 7.8 g/dL (6.4-8.2); Sodium Level 141 mmol/L (136-145)
[2021-08-07 21:43] LABS: Urine Bacteria 20-50 /HPF (<20); Urine RBC <5 /HPF (NONE SEEN)
--- NOTE | 2021-08-07 23:51 | ER ---
Nurse's Notes [facility] Name: Lalitha Valdes Age: 30 yrs Sex: Female : 1990 Arrival Date: 08/07/2021 Time: 20:20 Bed 20 Private MD: Diagnosis: Upper abdominal pain, unspecified Presentation: 08/07 20:38 Chief complaint: Patient states: Pt states mid upper abd pain with nausea since 0600 df1 today. Pt taking Amoxicillin and Motrin since last Wednesday for Tooth infection. Denies V/D. Coronavirus screen: Vaccine status: Patient reports receiving the 2nd dose of the covid vaccine. Client denies travel out of the [place] in the last 14 days. At this time, the client does not indicate any symptoms associated with coronavirus-19. Ebola Screen: Patient negative for fever greater than or equal to 101.5 degrees Fahrenheit, and additional compatible Ebola Virus Disease symptoms Patient denies exposure to infectious person. Patient denies travel to an Ebola-affected area in the 21 days before illness onset. Initial Sepsis Screen: Does the patient meet any 2 criteria? No. Patient's initial sepsis screen is negative. Does the patient have a suspected source of infection? No. Patient's initial sepsis screen is negative. Risk Assessment: Do you want to hurt yourself or someone else? Patient reports no desire to harm self or others. Onset of symptoms was August 07, 2021 at 06:00. 20:38 Method Of Arrival: Ambulatory df1 20:38 Acuity: JUAN PABLO 3 df1 Triage Assessment: 21:15 General: Appears distressed, uncomfortable, Behavior is cooperative, restless. Pain: cc4 Complains of pain in abdomen Pain radiates to epigastric to umbilicus Pain currently is 5 out of 10 on a pain scale. at worst was 8 out of 10 on a pain scale. level that patient reports is acceptable is 0 out of 10 on a pain scale. Quality of pain is described as crampy, Pain began Is episodic, Alleviated by nothing. Neuro: No deficits noted. Level of Consciousness is awake, alert, obeys commands, Oriented to person, place, time, situation. Cardiovascular: No deficits noted. Denies chest pain. Respiratory: No deficits noted. Airway is patent Breath sounds are clear bilaterally. GI: Abdomen is non-distended, Last BM was August 07, 2021. Bowel sounds present X 4 quads. Abd is soft and non tender X 4 quads. Reports nausea. : No signs and/or symptoms were reported regarding the genitourinary system. Derm: No deficits noted. Skin is intact. Musculoskeletal: No deficits noted. Capillary refill < 3 seconds, Range of motion: intact in all extremities. 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 - Social history:: Smoking status: Patient reports the use of cigarette tobacco products, denies chronic smoking, but will smoke occasionally, Reported history of juuling and/or vaping. - Code Status:: Full code. Screenin:15 Abuse screen: Denies threats or abuse. Nutritional screening: No deficits noted. cc4 Tuberculosis screening: No symptoms or risk factors identified. Fall Risk None identified. Assessment: 21:15 General: Appears distressed, uncomfortable, Behavior is cooperative, restless. Pain: cc4 Complains of pain in abdomen Pain radiates to epigastrium to umbilicus Pain currently is 5 out of 10 on a pain scale. at worst was 8 out of 10 on a pain scale. level that patient reports is acceptable is 0 out of 10 on a pain scale. Quality of pain is described as crampy, Pain began 2-3 days ago. Is episodic, Alleviated by nothing. Neuro: No deficits noted. Level of Consciousness is awake, alert, obeys commands, Oriented to person, place, time, situation. Cardiovascular: No deficits noted. Denies chest pain, Heart tones S1 S2. Respiratory: No deficits noted. Airway is patent Breath sounds are clear bilaterally. GI: Abdomen is non-distended, Bowel sounds present X 4 quads. Abd is soft and non tender X 4 quads. Reports nausea. : No signs and/or symptoms were reported regarding the genitourinary system. EENT: No signs and/or symptoms were reported regarding the EENT system. Derm: No deficits noted. Skin is intact. Musculoskeletal: No deficits noted. Capillary refill < 3 seconds, Range of motion: intact in all extremities, # 22 g diffusics inserted right AC x 1 attempt, natalia. well; blood drawn \T\ sent to lab; up to BR with urine obtained \T\ sent to lab. 21:25 Reassessment: IV NS hung to diffusics right AC \T\ infusing \T\ 999 ml/hr/pump with no cc 4 s/sx's of infiltration; medicated as odered, natalia. well. 22:00 Reassessment: Reports relief of nausea; resting quietly; calm. Patient states feeling cc4 better. 22:40 Reassessment: IV NS 1000 ml infused with no difficulty; To CT via w/c; NAD. cc4 23:00 Reassessment: Patient appears in no apparent distress at this time. Returned from CT cc4 via w/c. 08/08 00:25 Reassessment: Patient appears in no apparent distress at this time. Patient denies pain cc4 at this time. Patient states feeling better. denies nausea. Vital Signs: 08/07 20:38 BP 111 / 71; Pulse 72; Resp 18; Temp 98.6; Pulse Ox 100% on R/A; Weight 99.79 kg; df1 Height 5 ft. 8 in. (172.72 cm); Pain 5/10; 23:06 BP 103 / 65; Pulse 56; Resp 20; Pulse Ox 100% on R/A; cc4 08/08 00:25 BP 102 / 64; Pulse 61; Resp 18; Temp 98.0; Pulse Ox 100% on R/A; cc4 08/07 20:38 Body Mass Index 33.45 (99.79 kg, 172.72 cm) df1 ED Course: 08/07 20:20 Patient arrived in ED. bp1 20:41 Triage completed. df1 20:50 Jonathan Blevins PA is PHCP. cp 20:50 Jonathan Merritt MD is Attending Physician. cp 21:10 Inserted saline lock: 22 gauge in right antecubital area, using aseptic technique. ds4 Blood collected. 21:11 Lori Garsia, RN is Primary Nurse. cc4 21:12 Basic Metabolic Panel Sent. cc4 21:12 CBC with Diff Sent. cc4 21:12 Hepatic Function Sent. cc4 21:12 Lipase Sent. cc4 21:15 Patient has correct armband on for positive identification. Bed in low position. Call cc4 light in reach. Side rails up X 1. 21:15 Arm band placed on right wrist. Urine obtained. Urine : negative. Labs ordered cc4 per protocol. 21:19 Lipase Sent. cc4 21:19 Hepatic Function Sent. cc4 21:19 CBC with Diff Sent. cc4 21:19 Basic Metabolic Panel Sent. cc4 21:32 Urine Microscopic Only Sent. cc4 22:38 CT Abd/Pelvis - IV Contrast Only Sent. cc4 22:39 Urine Culture Sent. cc4 22:51 CT Abd/Pelvis - IV Contrast Only In Process Unspecified. EDMS 08/08 00:25 No provider procedures requiring assistance completed. cc4 00:25 IV discontinued, intact, bleeding controlled, No redness/swelling at site. Pressure cc4 dressing applied. Administered Medications: 08/07 21:13 CANCELLED (Physician Discretion): Benadryl (diphenhydrAMINE) 25 mg IVP once cp 21:25 Drug: Pepcid (famotidine) 20 mg Route: IVP; Site: right antecubital; cc4 22:30 Follow up: Response: No adverse reaction; Nausea is decreased cc4 21:25 Drug: Zofran (Ondansetron) 4 mg Route: IVP; Site: right antecubital; cc4 22:30 Follow up: Response: No adverse reaction; Nausea is decreased cc4 21:25 Drug: Bentyl (dicyclomine) 20 mg Route: PO; cc4 22:30 Follow up: Response: No adverse reaction; Nausea is decreased cc4 21:25 Drug: NS 0.9% 1000 ml Route: IV; Rate: 1 bolus; Site: right antecubital; cc4 22:30 Follow up: Response: No adverse reaction; IV Status: Completed infusion; IV Intake: cc4 1000ml Intake: 22:30 IV: 1000ml; Total: 1000ml. cc4 Outcome: 23:50 Discharge ordered by . mary 08/08 00:25 Discharged to home ambulatory. cc4 Condition: improved Discharge instructions given to patient, Instructed on discharge instructions, follow up and referral plans. medication usage, Demonstrated understanding of instructions, follow-up care, medications, Prescriptions given X 3. 00:32 Patient left the ED. cc4 Signatures: Dispatcher [employer] EDMS Dudley Downing ds4 Jonathan Blevins PA PA cp [place], Brittany [facility] Lori Garsia, RN RN cc4 Ansley Uriostegui df1
--- NOTE | 2021-08-07 23:51 | EDPHYS ---
Physician Documentation [facility] Name: Lalitha Valdes Age: 30 yrs Sex: Female : 1990 Arrival Date: 08/07/2021 Time: 20:20 Bed 20 Private MD: CASSIA Physician Jonathan Merritt HPI: 08/07 21:00 This 30 yrs old Black Female presents to ER via Ambulatory with complaints of Abdominal cp Pain. 21:00 The patient presents with abdominal pain in the upper abdomen. cp 21:00 Onset: The symptoms/episode began/occurred this morning, approximately 0600. Associated cp signs and symptoms: Pertinent positives: nausea, Pertinent negatives: constipation, diarrhea, vomiting. The symptoms are described as constant. 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 - Social history:: Smoking status: Patient reports the use of cigarette tobacco products, denies chronic smoking, but will smoke occasionally, Reported history of juuling and/or vaping. - Code Status:: Full code. ROS: 21:05 Constitutional: Negative for body aches, chills, fever, poor PO intake. cp 21:05 Eyes: Negative for injury, pain, redness, and discharge. cp 21:05 Cardiovascular: Negative for chest pain. 21:05 Respiratory: Negative for cough, shortness of breath, wheezing. 21:05 Abdomen/GI: Positive for abdominal pain, nausea, Negative for vomiting, diarrhea, constipation, anorexia, black/tarry stool, rectal bleeding. 21:05 Back: Positive for radiated pain, of the left low back and left mid back, Negative for injury or acute deformity. 21:05 : Negative for urinary symptoms. 21:05 Skin: Negative for rash. 21:05 Neuro: Negative for altered mental status, headache, weakness. 21:05 All other systems are negative. Exam: 21:10 Constitutional: The patient appears in no acute distress, alert, awake, non-toxic, well cp developed, well nourished, obese. 21:10 Head/Face: Normocephalic, atraumatic. cp 21:10 Eyes: Periorbital structures: appear normal, Conjunctiva: normal, no exudate, no injection, Sclera: no appreciated abnormality, Lids and lashes: appear normal, bilaterally. 21:10 ENT: External ear(s): are unremarkable, Nose: is normal, Mouth: Lips: moist, Oral mucosa: moist, Posterior pharynx: Airway: no evidence of obstruction, patent. 21:10 Chest/axilla: Inspection: normal. 21:10 Cardiovascular: Rate: normal, Rhythm: regular. 21:10 Respiratory: the patient does not display signs of respiratory distress, Respirations: normal, no use of accessory muscles, no retractions, labored breathing, is not present, Breath sounds: are clear throughout, no decreased breath sounds, no stridor, no wheezing. 21:10 Abdomen/GI: Inspection: abdomen appears normal, Bowel sounds: active, all quadrants, Palpation: soft, in all quadrants, moderate abdominal tenderness, in the epigastric area, right upper quadrant and left upper quadrant, rebound tenderness, is not appreciated, voluntary guarding, is elicited in the epigastric area, right upper quadrant and left upper quadrant. 21:10 Back: pain, that is mild, of the left low back and left mid back, ROM is normal. 21:10 Neuro: Orientation: to person, place \T\ time. Mentation: is normal. Vital Signs: 20:38 BP 111 / 71; Pulse 72; Resp 18; Temp 98.6; Pulse Ox 100% on R/A; Weight 99.79 kg; df1 Height 5 ft. 8 in. (172.72 cm); Pain 5/10; 23:06 BP 103 / 65; Pulse 56; Resp 20; Pulse Ox 100% on R/A; cc4 11 00:25 BP 102 / 64; Pulse 61; Resp 18; Temp 98.0; Pulse Ox 100% on R/A; cc4 08/07 20:38 Body Mass Index 33.45 (99.79 kg, 172.72 cm) df1 MDM: 08/07 20:56 Patient medically screened. neda 21:30 Differential diagnosis: appendicitis, bowel obstruction, gastritis, gastroesophageal cp reflux disease, GI Bleed, pancreatitis, Peptic Ulcer Disease, Perf. Duodenal Ulcer, Perf. Gastric Ulcer, Pelvic Inflammatory Disease, Pyelonephritis, urinary tract infection, choledocholithiasis. 23:50 Data reviewed: vital signs, nurses notes, lab test result(s), radiologic studies, CT cp scan. 23:50 Counseling: I had a detailed discussion with the patient and/or guardian regarding: the cp historical points, exam findings, and any diagnostic results supporting the discharge/admit diagnosis, lab results, radiology results, to return to the emergency department if symptoms worsen or persist or if there are any questions or concerns that arise at home. Response to treatment: the patient's symptoms have markedly improved after treatment, and as a result, I will discharge patient. Special discussion: Based on the patient's Hx, exam, and Dx evaluation, there is no indication for emergent surgery or inpatient Tx. It is understood by the patient/guardian that if the Sx's persist or worsen they need to return immediately for re-evaluation. 08/07 20:51 Order name: Basic Metabolic Panel; Complete Time: 22:20 cp 08/07 22:20 Interpretation: Normal except: K 3.4; CL 112. cp 08/07 20:51 Order name: CBC with Diff; Complete Time: 22:20 cp 08/07 20:51 Order name: Hepatic Function; Complete Time: 22:20 cp 08/07 20:51 Order name: Lipase; Complete Time: 22:20 cp 08/07 20:51 Order name: Urine Microscopic Only; Complete Time: 22:20 cp 08/07 21:16 Order name: Urine Dipstick-Ancillary; Complete Time: 22:20 EDMS 08/07 21:18 Order name: Urine --Ancillary (enter results); Complete Time: 22:20 ds4 08/07 21:44 Order name: Urine Culture EDMS 08/07 22:21 Order name: CT Abd/Pelvis - IV Contrast Only 08/07 20:51 Order name: IV Saline Lock; Complete Time: 21:11 cp 08/07 20:51 Order name: Labs collected and sent; Complete Time: 21:12 cp 08/07 20:51 Order name: Urine Dipstick-Ancillary (obtain specimen); Complete Time: 21:16 cp 08/07 20:51 Order name: Urine Test (obtain specimen); Complete Time: 21:16 cp Administered Medications: 21:13 CANCELLED (Physician Discretion): Benadryl (diphenhydrAMINE) 25 mg IVP once cp 21:25 Drug: Pepcid (famotidine) 20 mg Route: IVP; Site: right antecubital; cc4 22:30 Follow up: Response: No adverse reaction; Nausea is decreased cc4 21:25 Drug: Zofran (Ondansetron) 4 mg Route: IVP; Site: right antecubital; cc4 22:30 Follow up: Response: No adverse reaction; Nausea is decreased cc4 21:25 Drug: Bentyl (dicyclomine) 20 mg Route: PO; cc4 22:30 Follow up: Response: No adverse reaction; Nausea is decreased cc4 21:25 Drug: NS 0.9% 1000 ml Route: IV; Rate: 1 bolus; Site: right antecubital; cc4 22:30 Follow up: Response: No adverse reaction; IV Status: Completed infusion; IV Intake: cc4 1000ml Disposition: 08/08 11:23 Co-signature as Attending Physician, Jonathan Merritt MD I agree with the assessment and neda plan of care. Disposition Summary: 08/07/21 23:50 Discharge Ordered Location: Home cp Problem: new cp Symptoms: have improved cp Condition: Stable cp Diagnosis - Upper abdominal pain, unspecified cp Followup: cp - With: Private Physician - When: 2 - 3 days - Reason: Recheck today's complaints Discharge Instructions: - Discharge Summary Sheet cp - Abdominal Pain, Adult cp Forms: - Medication Reconciliation Form cp - Thank You Letter cp - Antibiotic Education cp - Prescription Opioid Use cp Prescriptions: - Pepcid 20 mg Oral Tablet - take 1 tablet by ORAL route every 12 hours for 10 days; 20 tablet; Refills: 0, cp Product Selection Permitted - Zofran 4 mg Oral Tablet - take 1 tablet by ORAL route every 12 hours As needed; 20 tablet; Refills: 0, cp Product Selection Permitted - dicyclomine 20 mg Oral Tablet - take 1 tablet by ORAL route 4 times per day; 30 tablet; Refills: 0, Product cp Selection Permitted Signatures: Dispatcher [employer] EDJonathan Aldridge MD MD cha Page, Corey, PA PA cp Lori Garsia, RN RN cc4 Ansley Uriostegui df1 Corrections: (The following items were deleted from the chart) 08/07 21:13 21:13 Benadryl (diphenhydrAMINE) 25 mg IVP once ordered. cp cp
[2021-08-08 01:12] VITALS: TEMP 98.6; O2SAT 100
[2021-08-08 01:13] VITALS: BP 103/65
--- NOTE | 2021-08-08 08:35 | RAD REPORT ---
EXAM DESCRIPTION: Abdomen Pelvis W Contrast CLINICAL HISTORY: 30-year-old female with abdominal pain. COMPARISON: None. TECHNIQUE: CT of the abdomen and pelvis was performed following intravenous administration of contra st. Oral contrast was not administered. Multiplanar reformatted images were provided. This exam was p erformed according to our departmental dose optimization program which includes use of automated expo sure control, adjustment of the mA and/or kV according to patient size and/or use of iterative recons truction technique. FINDINGS: Chest: Evaluation through the lung bases reveals no focal opacity, pleural effusion or pne umothorax. Heart size is within normal limits. No pericardial effusion. Abdomen and pelvis: Diffuse hepatic steatosis and hepatomegaly measuring 19.8 cm. The liver, pancreas , spleen, bilateral kidneys and bilateral adrenal glands are within normal limits. Surgical clips at the level of the gallbladder fossa status post cholecystectomy. The vessels are patent and normal in caliber. No abdominopelvic lymph nodes are noted to be pathologically enlarged by CT measurement criteria. The bowel is within normal limits without abnormal bowel wall thickness or bowel dilation. No free air. No free abdominopelvic fluid collections. The appendix is within normal limits. The osseous structures are within normal limits. IMPRESSION: 1. No specific acute intra-abdominal findings are noted to suggest etiology of the pat ient's abdominal pain. 2. Diffuse hepatic steatosis and hepatomegaly measuring 19.8 cm. Electronically signed by: Vandana Ellis MD 08/07/2021 11:07 PM CDT Due to temporary technical issues with the PACS/Fluency reporting system, reports are being signed by the in house radiologist without review as a courtesy to ensure prompt reporting. The interpreting r adiologist is fully responsible for the content of the report.
--- OUTSIDE RECORDS SUMMARY | 2021-08-16 12:02 | XMS REPORT | Continuity of Care Document ---
:1990 Author Organization [facility] t Address [address] [place] [address] Care Team Providers Name Role Phone Lab, Fam Pob I Attending Clinician Unavailable Mango SKI INSTRUCTOR Attending Clinician MANGO Attending Clinician Unavailable Doctor Unassigned, Name Attending Clinician Unavailable Kip SKI INSTRUCTOR Attending Clinician LEONARDA Attending Clinician Unavailable Leonarda SKI INSTRUCTOR Attending Clinician Payers Payer Name Policy Type Policy Number Effective Date Expiration Date [facility] [id number] 2017 CHOICE MEDICAID 00:00:00 AETNA O [id number] 2018 00:00:00 Problems Condition Condition Condition Status Onset Resolution Last Treating Co mments Source Name Details Category Date Date Treatment Clinician Date No known No known Disease Unive rs active active ity of problems problems [facility] Allergies, Adverse Reactions, Alerts Allergy Allergy Status Severity Reaction(s) Onset Inactive Treating Comm ents Source Name Type Date Date Clinician NO KNOWN Drug Active Univers ALLERGIE Class ity of S [facility] Social History Social Habit Start Date Stop Date Quantity Comments Source Exposure to Yes University of SARS-CoV-2 (event) [facility] Cigarettes smoked 2020-07-04 2020-07-04 Univers ity of current (pack per 00:00:00 00:00:00 ) - Reported Branch Alcohol intake 2020-07-04 2020-07-04 Current drinker Unive rsity of 00:00:00 00:00:00 of alcohol [facility] (finding) [place] Sex Assigned At [birth year] Universit y of 00:00:00 00:00:00 [facility] Smoking Status Start Date Stop Date Source Current every day smoker 2020-07-04 00:00:00 Uni versity of [facility] Medications Ordered Filled Start Stop Current Ordering Indication Dosage Frequency Signature Comments Components Source Medication Medication Date Date Medication? Clinician (SIG) Name Name NaCl 0.9% 2019-10- No 1000mL at 999 Uni vers (NS) bolus 007-05 mL/hr, ity of infusion 02:45: 03:31 1,000 mL, Ko[place] as 1,000 mL 00 :00 IV Medical Infusion, [place] ONCE, 1 dose, [facility] 07/04/20 at 2145, STAT metoclopram 2019-10 No 10mg 10 mg, Uni vers magnus HCl 07-05 Slow IV ity of (REGLAN) 02:45: 02:20 Push, [place] injection 00 :00 ONCE, 1 Medical 10 mg dose, [facility] Branch 07/04/20 at 2145, ELIZ magnesium 2019-10 No 2g 2 g, IV Univ ers sulfate in 07-05 Piggyback, it y of water 2 02:45: 03:31 ONCE, 1 [place] gram/50 mL 00 :00 dose, [facility] Medi luis alfredo (4 %) 07/04/20 at Branch infusion 2 2145, g Routine ketorolac 2019-10 No 30mg 30 mg, Unive rs (TORADOL) 007-05 Slow IV ity of injection 02:45: 02:20 Push, [place] 30 mg 00 :00 ONCE, 1 Medical dose, Gianna Branch 07/04/20 at 2145, Routine
membership advisor approving Restricted medication : CHANDRAKANT CUELLAR diphenhydrA 2019-10- No 25mg 25 mg, Uni vers MINE 007-05 Intravenou ity of (BENADRYL) 02:45: 02:20 s, ONCE, 1 [place] injection 00 :00 dose, Gianna Medic al 25 mg 07/04/20 at Branch 2145, ELIZ dexamethaso 2019-10- No 10mg 10 mg, Uni vers ne 0-02 10-02 Slow IV ity of (DECADRON 02:45: 02:27 Push, [place] PHOSPHATE) 00 :00 ONCE, 1 Medica l injection dose, Gianna Branc h 10 mg 07/04/20 at 2145, STAT butalbital- 2019-10 2020- No 1{tbl} 1 tablet, Univers acetaminoph 0-02 10-02 Oral, ity of en-caff 01:45: 02:19 ONCE, 1 [place] (ESGIC) 00 :00 dose, [facility] Medical 50-325-40 07/04/20 at Bran ch mg tablet 1 2044, tablet Routine butalbital2019-10 Yes [id number] 1{tbl} Take 1 Univers acetaminoph 0-01 tablet by ity of en-caff 00:00: mouth [place] 50-325-40 00 every 4 Medical mg tablet (four) Branch hours as needed for Pain (scale 4-6) or Pain (scale 7-10). butalbital2019-10 Yes [id number] 1{tbl} Take 1 Univers acetaminoph 0-01 tablet by ity of en-caff 00:00: mouth [place] 50-325-40 00 every 4 Medical mg tablet (four) Branch hours as needed for Pain (scale 4-6) or Pain (scale 7-10). butalbital2019-10 Yes [id number] 1{tbl} Take 1 Univers acetaminoph 0-01 tablet by ity of en-caff 00:00: mouth [place] 50-325-40 00 every 4 Medical mg tablet (four) Branch hours as needed for Pain (scale 4-6) or Pain (scale 7-10). /OVRAL-2012-10 Yes 2{tbl} Take 2 Un marylou (LOW-OGESTR 2-27 Tabs by ity o f EL) 0.3-30 19:52: mouth once [place] mg-mcg 33 now. Medical tablet Branch /[id number] Yes 2{tbl} Take 2 Un marylou (LOW-OGESTR 2-27 Tabs by ity o f EL) 0.3-30 19:52: mouth once [place] mg-mcg 33 now. Medical tablet Branch [id number] Yes 2{tbl} Take 2 Un marylou (LOW-OGESTR 2-27 Tabs by ity o f EL) 0.3-30 19:52: mouth once [place] mg-mcg 33 now. Medical tablet Branch /[id number] Yes 2{tbl} Take 2 Un marylou (LOW-OGESTR 2-27 Tabs by ity o f EL) 0.3-30 19:52: mouth once [place] mg-mcg 33 now. Medical tablet Branch [facility] Yes 2{tbl} Take 2 Un marylou (LOW-OGESTR 2-27 Tabs by ity o f EL) 0.3-30 19:52: mouth once [place] mg-mcg 33 now. Medical tablet [place] Vital Signs Vital Name Observation Time Observation Value Comments Source Systolic blood 2020-07-05 03:00:00 109 mm[Hg] [facility] Diastolic blood 2020-07-05 03:00:00 70 mm[Hg] [facility] Heart rate 2020-07-05 03:00:00 69 /min [facility] Respiratory rate 2020-07-05 03:00:00 18 /min [facility] Oxygen saturation in 2020-07-05 03:00:00 98 /min [facility] Arterial blood by [facility] [place] [facility] Pulse oximetry Branch Body temperature 2020-07-05 01:17:00 36.94 Mena [facility] Body weight 2020-07-05 01:17:00 74.39 kg [facility] BMI 2020-07-05 01:17:00 24.94 kg/m2 [facility] Procedures Procedure Date / Time Performing Clinician Source Performed AUTHORIZATION FOR 2020-08-23 06:01:00 Doctor [facility]assigned[facility] RE[facility] OF PHI Name [facility] CT HEAD WO CONTRAST 2020-07-05 02:14:30 Wellington Shin [facility] BASIC METABOLIC PANEL 2020-07-05 02:14:00 Wellington Shin [facility] (NA, K, CL, CO2, Medical Branch GLUCOSE, BUN, CREATININE, CA) CBC WITHOUT DIFF 2020-07-05 02:14:00 Wellington Shin [facility] URINALYSIS 2020-07-05 02:14:00 Wellington Shin Pride o f [facility] POCT TEST 2020-07-05 02:01:00 Wellington Shin [facility] NOTICE OF PRIVACY 2020-07-05 01:07:45 Doctor Unassigned, No Univ [facility] PRACTICES Name [facility] CONSENT/REFUSAL FOR 2020-07-05 01:06:19 [facility] Name [facility] Encounters Start End Encounter Admission Attending Care Care Encounter Source Date/Time Date/Time Type Type Clinicians Facility Department ID 2021-08-01 Emergency [facility] [id number] Univers 20:37:53 ity [facility] 2021-01-13 2021-01-13 Laboratory Lab, Adc Fam Pob I [facility] 1.2. 840.114 [id number] Univers 18:03:23 18:23:23 Only Kylee Mauro [facility] [id number] ity of [place] [id number] Kojo as Professio [phone] Ia dical [facility] 044 [place] Office [address] 2021-01-13 2021-01-13 Outpatient R [facility] [id number] Univers 18:00:00 18:00:00 [id number] ity [facility] 2021-01-13 2021-01-13 Outpatient R [facility] [id number] Univers 18:00:00 18:00:00 [facility] 2020-09-12 2020-09-12 Outpatient R [facility] [id number] Univers 13:45:00 13:45:00 [id number] ity [facility] 2020-08-23 2020-08-23 Orders Doctor LOPEZ [id number] Univers 00:00:00 00:00:00 Only UnassLEANNE woodson [id number] ity of [place] [facility] [id number] [place] as [phone] [address] 2020-07-04 2020-07-04 [facility] [id number] Univers 20:20:00 22:32:00 Wellington Hui [id number] i ty of [place] 4.2.7.2.686 [place] [facility] [phone] [place] [id number] [place] 2020-05-18 2020-05-18 Outpatient R LEONARDA [facility] [id number] Univers 14:00:00 14:00:00 FLORESITA gray of [facility] 2020-05-18 2020-05-18 Laboratory Lab, [facility] [id number] 12:48:16 13:08:16 Only Fam Pob I Health [id number] [place] [id number] Professio [phone] nal [facility] Office [address] One 2020-05-18 2020-05-18 Laboratory Lab, [facility] Fam Pob I [facility] 1.2. 840.114 [id number] Univers 12:48:16 13:08:16 Only Floresita Brower [facility] [id number] ity of [place] [id number] Kojo as Professio [phone] Ia dical nal 044 [place] Office Building One Results Test Description Test Time Test Comments Results Result Comments Source URINALYSIS 2020-07-05 02:52:00 Test Item Value Reference Range Interpretation Comme nts APPEARANCE (test code = Clear Clear 0701270657) COLOR (test code = 1681434025) Straw Yellow A PH (test code = 6858727825) 4.8-8.0 SP GRAVITY (test code = 1.003-1.030 5071133147) GLU U QUAL (test code = Normal Normal 4128212258) BLOOD (test code = 4418289992) Negative Negative KETONES (test code = 8048886434) Negative Negative PROTEIN (test code = 2887-8) Negative Negative UROBILIN (test code = 6941190090) Normal Normal BILIRUBIN (test code = Negative Negative 3728350071) NITRITE (test code = 5526833226) Negative Negative LEUK TANIA (test code = Negative Negative 0485194696) RBC/HPF (test code = 8101571927) See_Comment [Automated message] The system which ge nerated this result transmit gayatri reference range: 0 - 3 HP F. The reference range was not used to interpret th is result as normal/abnormal . WBC/HPF (test code = 5453341927) See_Comment [Automated message] The system which ge nerated this result transmit gayatri reference range: 0 - 5 HP F. The reference range was not used to interpret th is result as normal/abnormal . BACTERIA (test code = 0152798020) Few Negative A SQ EPITH (test code = 7627825001) HPF Lab Interpretation (test code = Abnormal 18057-0) [facility] METABOLIC PANEL (NA, K, CL, CO2, GLUCOSE, BUN, CREATININE, CA)2020-07-05 02:50:00 Test Item Value Reference Range Interpretation Comments NA (test code = 137 mmol/L 135-145 9101199327) K (test code = 4.1 mmol/L 3.5-5 1890946427) CL (test code = 103 mmol/L 98-108 2262249521) CO2 TOTAL (test code = 27 mmol/L 23-31 5054999575) AGAP (test code = 2-16 5059457434) BUN (test code = 10 mg/dL 7-23 3763793148) GLUCOSE (test code = 90 mg/dL 70-110 5864264908) CREATININE (test code 0.59 mg/dL 0.5-1.04 = 6009693376) CALCIUM (test code = 10.3 mg/dL 8.6-10.6 3243247322) eGFR Calculation mL/min/1.73m2 (Non-) (test code = 7618791219) eGFR Calculation mL/min/1.73m2 () (test code = 5599239250) MARTY (test code = MARTY) Association of Glomerular Filtration Rate (GFR) and Staging of Kidney Disease* + -+ + ---+| GFR (mL/min/1.73 m2) ?| With Kidney Damage ?| ?Without Kidney Damage+ -------+ ------+ ---------+| ?>90 ?| ?Stage one ?| ? Normal ?+ --+ -+ ----+| ?60-89 ?| ?Stage two ?| ? Decreased GFR ? + -+ + ---+| ?30-59 ?| ?Stage three ?| ? Stage three ? + -+ + ---+| ?15-29 ?| ?Stage four ? | ? Stage four ?+ --+ -+ ----+| ?<15 (or dialysis) ? ?| ?Stage five ? | ? Stage five ?+ --+ -+ ----+ *Each stage assumes the associated GFR level has been in effect for at least three months. ?Stages 1 to 5, with or without kidney disease, indicate chronic kidney disease. Notes: Determination of stages one and two (with eGFR >59mL/min/1.73 m2) requires estimation of kidney damage for at least three months as defined by structural or functional abnormalities of the kidney, manifested by either:Pathological abnormalities or Markers of kidney damage (including abnormalities in the composition of the blood or urine or abnormalities in imaging tests). [facility] WITHOUT [id number] 02:35:00 Test Item Value Reference Range Interpretation Comments WBC (test code = 6690-2) See_Comment [A utomated message] The system [employer] generated this result transmit gayatri reference range : 4.30 - 11.10 10*3/?L. The reference range was not used to interpret this result as normal/abnormal . RBC (test code = 789-8) See_Comment [Au tomated message] The system [employer] generated this result transmit gayatri reference range : 3.93 - 5.25 10* 6/?L. The reference r meek was not used to interpret this result as normal/abnormal . HGB (test code = 718-7) 11.2 g/dL 11.6-15 L HCT (test code = 4544-3) 34.3 % 35.7-45.2 L MCH (test code = 785-6) 24.8 pg 25.9-32.8 L MCV (test code = 787-2) 75.9 fL 80.6-95.5 L MCHC (test code = 786-4) 32.7 g/dL 31.6-35.1 PLT (test code = 777-3) See_Comment [Au tomated message] The system [employer] generated this result transmit gayatri reference range : 166 - 358 10*3/?L. The reference range was not used to interpret this result as normal/abnormal . MPV (test code = 11.9 fL 9.5-12.9 44839-0) RDW-CV (test code = 13.5 % 12-15.5 788-0) RDW-SD (test code = 36.5 fL 39-49.9 L 44026-7) NRBC x10^3 (test code = <0.01 See_Comment [Au tomated message] 9728020276) The system [employer] h generated this result transmit gayatri reference range : 10*3/?L. The reference range was not used to interpret this result as normal/abnormal . NRBC/100 WBC (test code See_Comment [Au tomated message] = 5435173868) The system [employer] ch generated this result transmit gayatri reference range : 0.0 - 10.0 /100 WBC s. The reference r meek was not used to interpret this result as normal/abnormal . IPF % (test code = 4450981597) Lab Interpretation (test Abnormal code = 11574-7) [facility] HEAD WO [id number] 02:17:[address] headCT HEAD WO CONTRAST HISTORY: Female 29 years Headache, acute, severe, worst BAUM of life COMPARISON: None TECHNIQUE: Routine CT head without contrast FINDINGS: The ventricles and cerebralsulci are normal in caliber and configuration.No hydrocephalus, midline shift or pathological extra-axial fluidcollection is present. The basal cisterns are unremarkable. No acute intracranial hemorrhage or mass effect is present. The walls-whitematter differentiation is preserved. No parenchymal attenuation abnormalityis present. The calvarium and skull base are unremarkable. The mastoid aircells and visualized paranasal air sinuses are clear. [facility], Radiant Results Inft User - 07/04/2020 9:18 PM CDTCT HEAD WO CONTRASTHISTORY: Female 29 years Headache, acute, severe, worst BAUM of life COMPARISON: NoneTECHNIQUE: Routine CT head without contrastFINDINGS:The ventricles and cerebral sulci are normal incaliber and configuration.No hydrocephalus, midline shift or pathological extra-axial fluidcollection is present. The basal cisterns are unremarkable.No acute intracranial hemorrhage or mass effect is present. The walls-whitematter differentiation is preserved. No parenchymal attenuation abnormalityis present. The calvarium and skull base are unremarkable. The mastoid aircells and visualized paranasalair sinuses are clear.IMPRESSIONNormal CT [facility] [id number] 02:01:00 Test Item Value Reference Range Interpretation Comments POCT PREG (test code = 1605) negative On board controls acceptable with present C Line (test code = 3574) POCT PREG LOT # (test code = 3575) [id number] POCT PREG TEST DATE (test 2021-08-03 code = 3576) Lab Interpretation (test code = Normal 39017-9) [facility]"
== END 2021-08-08 00:32 | disposition home or self-care (01) ==
LOC: ER 20:18
DX: R10.10 Upper abdominal pain, unspecified (principal); F41.9 Anxiety disorder, unspecified; F17.210 Nicotine dependence, cigarettes, uncomplicated
CPT/HCPCS: 96361; 87088; 85025; 87086; 80048; 36415; 81025; 80076; 83690; 74177; 96375; 96374; 99284; Q9967; J7030; J2405; 81003; 81015

== ENCOUNTER 2023-04-12 17:48 | Emergency (ER) | payer OTHER ==
--- OUTSIDE RECORDS SUMMARY | 2023-04-12 17:52 | XMS REPORT | Continuity of Care Document ---
:1990 Author Organization [facility] t Address [address] [facility] [address] [place] [address] Care Team Providers Name Role Phone Ignacio Mitchell Attending Clinician Lab, Adc Fam Pob I Attending Clinician Unavailable Kylee Fuentes Attending Clinician KYLEE COBIAN Attending Clinician Unavailable Doctor Unassigned, [place] Attending Clinician Unavailable Wellington Ng Attending Clinician FLORESITA RUCKER Attending Clinician Unavailable Floresita Miller Attending Clinician Payers Payer Name Policy Type Policy Number Effective Date Expiration Date [facility] [id number] 2017 [facility] MEDICAID 00:00:00 AETNA O [id number] 2018 00:00:00 Problems Condition Condition Condition Status Onset Resolution Last Treating Co mments Source Name Details Category Date Date Treatment Clinician Date 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 Neuro Cervico-oc Problem Active 2023-02-19 M emoria cipital Cervico-oc 13:57:52 l neuralgia cipital Luis Antonio n (finding) neuralgia (finding) Active Problem 02/19/2023 [facility] Cyst of Cyst of Problem Active 2023-02-19 Me moria nasal nasal 13:57:52 l sinus sinus [place] (disorder) (disorder) Active Problem 02/19/2023 [facility] Neurology Lapel Dizziness Dizziness Problem Active 2023-02-19 Memoria (finding) (finding) 13:57:52 l Active Dandy Problem 02/19/2023 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 13:57:52 l (disorder) (disorder) He rmann Active Problem 02/19/2023 [facility] No known No known Disease Unive rs active active ity of problems problems [facility] Allergies, Adverse Reactions, Alerts Allergy Allergy Status Severity Reaction(s) Onset Inactive Treating Comm ents Source Name Type Date Date Clinician NO KNOWN Drug Active Univers ALLERGIE Class ity of S [facility] Social History Social Habit Start Date Stop Date Quantity Comments Source Exposure to Yes University of SARS-CoV-2 (event) [facility] Cigarettes smoked 2020-07-04 2020-07-04 Univers ity of current (pack per 00:00:00 00:00:00 ) - Reported Branch Alcohol intake 2020-07-04 2020-07-04 Current drinker Unive rsity of 00:00:00 00:00:00 of alcohol [facility] (finding) Branch Sex Assigned At [birth year] Universit y of 00:00:00 00:00:00 [facility] Smoking Status Start Date Stop Date Source Tobacco smoking status 2023-02-16 16:44:37 Lee Dorman Current every day smoker 2020-07-04 00:00:00 Uni versity of [facility] Medications Ordered Filled Start Stop Current Ordering Indication Dosage Frequency Signature Comments Components Source Medication Medication Date Date Medication? Clinician (SIG) Name Name Zomig 2.5 Yes 2.5 mg = 1 Me moria mg oral 5-16 tab, PO, l tablet 17:08: PRN, PRN [place] 00 migraine, # 6 tab, 2 Refill(s), Pharmacy: [facility] #[id number], 175.26, cm, 02/16/23 11:55:00 CDT, Height, 99.091, kg, 02/16/23 11:55:00 CDT, Weight Estarylla Yes 0 Memoria 0.25 mg-35 5-16 Refill(s) l mcg oral 16:55: [place] tablet 00 metFORMIN Yes 500 mg = 1 Me moria 500 mg oral 5-16 tab, PO, l tablet 16:54: BID-Meals, Cathy nn 00 # 30 tab, 0 Refill(s) amitriptyli Yes = 1 tab, Me moria ne 10 mg 5-15 PO, l oral tablet 22:05: Bedtime, # [place] 00 90 tab, 1 Refill(s), Pharmacy: [facility] [id number], 170.18, cm, 02/12/22 10:38:00 CDT, Height, 105, kg, 02/12/22 10:38:00 CDT, Weight thiamine Yes 100 mg = 1 Mem oria 100 mg oral 5-23 tab, PO, l tablet 18:55: Daily, # [place] 00 90 tab, 2 Refill(s), Pharmacy: [facility] #[id number], 170.18, cm, 02/12/22 10:38:00 CDT, Height, 105, kg, 02/12/22 10:38:00 CDT, Weight eletriptan Yes See Memoria 40 MG Oral 4-06 Instructio l Tablet 16:37: ns, PO, Dandy [Relpax] 00 Take 1-2 tabs orally at onset of migraine, may repeat dose once in 2 hours, X 3 day, # 6 tab, 1 Refill(s), Pharmacy: [facility] #[id number], 175.26, cm, 01/07/21 11:09:00 CDT, Height, 99.545, kg, 04/06/21 11:09:00 CDT, Weight amitriptyli 2019-10 Yes 20 mg = 2 M emoria ne 10 mg 2-30 tab, PO, l oral tablet 22:42: Bedtime, # [place] 00 60 tab, 1 Refill(s), Pharmacy: [facility] #[id number], 172.72, cm, 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, Height, 86.364, kg, 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, Weight amitriptyli 2019-10 Yes 10 mg = 1 M emoria ne 10 mg 2-02 tab, PO, l oral tablet 22:22: Bedtime, # [place] 00 30 tab, 1 Refill(s), [facility]acy: [id number], 172.72, cm, 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, Height, 86.364, kg, 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, Weight gabapentin 2019-10 Yes 600 mg = 1 M emoria 600 MG Oral 1-04 tab, PO, l Tablet 23:09: PRN, PRN [place] 00 headache, # 60 tab, 2 Refill(s), Pharmacy: [id number], 175.26, cm, 08/07/20 16:24:00 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, Height, 81.818, kg, 08/07/20 16:24:00 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, Weight NaCl 0.9% 2019-10- No 1000mL at 999 Uni vers (NS) bolus 0-11 13-02 mL/hr, ity of infusion 02:45: 03:31 1,000 mL, Kojo as 1,000 mL 00 :00 IV Medical Infusion, Branch ONCE, 1 dose, Gianna 07/04/20 at 2145, STAT metoclopram 2019-10- No 10mg 10 mg, Uni vers magnus HCl 0 1002 Slow IV ity of (REGLAN) 02:45: 02:20 Push, [place] injection 00 :00 ONCE, 1 Medical 10 mg dose, Gianna Branch 07/04/20 at 2145, ELIZ magnesium 2019-10 2020- No 2g 2 g, IV Univ ers sulfate in 0-11 13-02 Piggyback, it y of water 2 02:45: 03:31 ONCE, 1 [place] gram/50 mL 00 :00 dose, Gianna Medi luis alfredo (4 %) 07/04/20 at Branch infusion 2 2144, g Routine ketorolac 2019-10- No 30mg 30 mg, Unive rs (TORADOL) 007-05 Slow IV ity of injection 02:45: 02:20 Push, [place] 30 mg 00 :00 ONCE, 1 Medical dose, [facility] Branch 07/04/20 at 2145, Routine
sociology faculty member approving Restricted medication : CHANDRAKANT CUELLAR diphenhydrA 2019-10- No 25mg 25 mg, Uni vers MINE 007-05 Intravenou ity of (BENADRYL) 02:45: 02:20 s, ONCE, 1 [place] injection 00 :00 dose, Gianna Medic al 25 mg 07/04/20 at Branch 2144, ELIZ dexamethaso 2019-10- No 10mg 10 mg, Uni vers ne 07-05 Slow IV ity of (DECADRON 02:45: 02:27 Push, [place] PHOSPHATE) 00 :00 ONCE, 1 Medica l injection dose, [facility] Branc h 10 mg 07/04/20 at 5, STAT butalbital- 2019-10 2020- No 1{tbl} 1 tablet, Univers acetaminoph 0-02 07-05 Oral, ity of en-caff 01:45: 02:19 ONCE, 1 [place] (ESGIC) 00 :00 dose, [facility] Medical 50-325-40 07/04/20 at Bran ch mg tablet 1 2044, tablet Routine butalbital- 2019-10 Yes [id number] 1{tbl} Take 1 Univers acetaminoph 0-01 tablet by ity of en-caff 00:00: mouth [place] 50-325-40 00 every 4 Medical mg tablet (four) Branch hours as needed for Pain (scale 4-6) or Pain (scale 7-10). butalbital- 2019-10 Yes [id number] 1{tbl} Take 1 Univers acetaminoph 0-01 tablet by ity of en-caff 00:00: mouth [place] 50-325-40 00 every 4 Medical mg tablet (four) Branch hours as needed for Pain (scale 4-6) or Pain (scale 7-10). butalbital- 2019-10 Yes [id number] 1{tbl} Take 1 Univers acetaminoph 0-01 tablet by ity of en-caff 00:00: mouth [place] 50-325-40 00 every 4 Medical mg tablet (four) Branch hours as needed for Pain (scale 4-6) or Pain (scale 7-10). [place] [address] 2012-10 Yes 2{tbl} Take 2 Un marylou (LOW-OGESTR 2-27 Tabs by ity o f EL) 0.3-30 19:52: mouth once [place] mg-mcg 33 now. Medical tablet [facility]2012-10 Yes 2{tbl} Take 2 Un marylou (LOW-OGESTR 2-27 Tabs by ity o f EL) 0.3-30 19:52: mouth once [place] mg-mcg 33 now. Medical tablet [facility]2012-10 Yes 2{tbl} Take 2 Un marylou (LOW-OGESTR 2-27 Tabs by ity o f EL) 0.3-30 19:52: mouth once [place] mg-mcg 33 now. Medical tablet [facility]2012-10 Yes 2{tbl} Take 2 Un marylou (LOW-OGESTR 2-27 Tabs by ity o f EL) 0.3-30 19:52: mouth once [place] mg-mcg 33 now. Medical tablet [facility]2012-10 Yes 2{tbl} Take 2 Un marylou (LOW-OGESTR 2-27 Tabs by ity o f EL) 0.3-30 19:52: mouth once [place] mg-mcg 33 now. Medical tablet [place] Immunizations Ordered Immunization Filled Immunization Date Status Commen ts Source Name Name [id number]-19mR 2021-05-27 Completed Dmitry rial NABNT-[id number] 00:00:00 Herm layo TAFK-DiK-3EVWTO-19mR 2021-05-06 Completed Dmitry rial NABNT-[id number] 00:00:00 Herm layo Vital Signs Vital Name Observation Time Observation Value Comments Source Systolic blood 2020-07-05 03:00:00 109 mm[Hg] Vikram sampson of pressure [facility] Diastolic blood 2020-07-05 03:00:00 70 mm[Hg] Unive rsity of pressure [facility] Heart rate 2020-07-05 03:00:00 69 /min [facility] Respiratory rate 2020-07-05 03:00:00 18 /min [facility] Oxygen saturation in 2020-07-05 03:00:00 98 /min [facility] Arterial blood by [facility] Pulse oximetry [place] Body temperature 2020-07-05 01:17:00 36.94 [facility] weight 2020-07-05 01:17:00 74.39 kg [facility] BMI 2020-07-05 01:17:00 24.94 kg/m2 [facility] Systolic (mm Hg) 2023-02-16 16:44:00 Dmitry rial [place] Diastolic (mm Hg) 2023-02-16 16:44:00 Mem orial [place] Heart Rate 2023-02-16 16:44:00 Memorial [place] Height 2023-02-16 16:44:00 5 [ft_i] Memorial [place] Weight 2023-02-16 16:44:00 Memorial [place] BMI Calculated 2023-02-16 16:44:00 Memori al [place] Systolic (mm Hg) 2022-02-12 15:38:00 Dmitry rial [place] Diastolic (mm Hg) 2022-02-12 15:38:00 Mem orial [place] Heart Rate 2022-02-12 15:38:00 Memorial [place] Respitory Rate 2022-02-12 15:38:00 Memori al [place] Height 2022-02-12 15:38:00 170.18 cm Memorial [place] Weight 2022-02-12 15:38:00 [facility] [place] BMI Calculated 2022-02-12 15:38:00 Memori al [place] Diastolic (mm Hg) 2021-01-07 16:09:00 Mem orial [place] Heart Rate 2021-01-07 16:09:00 Memorial [place] Respitory Rate 2021-01-07 16:09:00 Memori al [place] Height 2021-01-07 16:09:00 175.26 cm Memorial [place] Weight 2021-01-07 16:09:00 [facility] [place] BMI Calculated 2021-01-07 16:09:00 Memori al [place] Systolic (mm Hg) 2021-01-07 16:09:00 Dmitry rial [place] Systolic (mm Hg) 2020-09-04 22:03:00 Dmitry rial [place] Diastolic (mm Hg) 2020-09-04 22:03:00 Mem orial [place] Heart Rate 2020-09-04 22:03:00 Memorial [place] Respitory Rate 2020-09-04 22:03:00 Memori al [place] Height 2020-09-04 22:03:00 172.72 cm [facility] [place] Weight 2020-09-04 22:03:00 Memorial [place] BMI Calculated 2020-09-04 22:03:00 Memori al [place] Systolic (mm Hg) 2020-08-07 22:06:00 Dmitry rial [place] Diastolic (mm Hg) 2020-08-07 22:06:00 Mem orial [place] Heart Rate 2020-08-07 22:06:00 Memorial [place] Respitory Rate 2020-08-07 22:06:00 Memori al [place] Height 2020-08-07 22:06:00 175.26 cm Memorial [place] Weight 2020-08-07 22:06:00 Memorial [place] BMI Calculated 2020-08-07 22:06:00 Memori al [place] Procedures Procedure Date / Time Performing Clinician Source Performed AUTHORIZATION FOR 2020-08-23 06:01:00 Doctor Unassigned, No [facility] CT HEAD WO CONTRAST 2020-07-05 02:14:30 Wellington Shin [facility] BASIC METABOLIC PANEL 2020-07-05 02:14:00 Wellington Shin [facility] (NA, K, CL, CO2, Medical Branch GLUCOSE, BUN, CREATININE, CA) CBC WITHOUT DIFF 2020-07-05 02:14:00 Wellington Shin [facility] URINALYSIS 2020-07-05 02:14:00 Wellington Shin [place] [facility] POCT TEST 2020-07-05 02:01:00 Wellington Shin [facility] NOTICE OF PRIVACY 2020-07-05 01:07:45 Doctor Unassigned, No [facility] Name [facility] CONSENT/REFUSAL FOR 2020-07-05 01:06:19 Doctor Unassigned, No Un [facility] DIAGNOSIS AND TREATMENT Name Medical Branch Encounters Start End Encounter Admission Attending Care Care Encounter Source Date/Time Date/Time Type Type Clinicians Facility Department ID 2021-08-01 Emergency [facility] [id number] Univers 20:37:53 [facility] 2023-06-18 2023-06-18 Outpatient MHIE MHIE [id number] Memoria 11:30:00 11:30:00 10 maria d Dandy 2023-02-16 2023-02-17 Outpatient MHIE MNA [id number] Memoria 16:30:00 04:59:59 Neurology 09 maria d Lapel Dandy 2023-02-16 2023-02-16 Outpatient WYATT MitchellSCHER MHMISCHER [id number] 11:30:00 23:59:59 Ignacio 09 Db 2023-02-16 2023-02-16 Outpatient MHIE MHIE [id number] Memoria 11:30:00 11:30:00 09 maria d Dandy 2022-03-05 2022-03-05 Ambulatory nullFlavo MNA [id number] Memoria 16:00:00 16:00:00 Pre-Reg r Neurology 08 maria d Lapel Dandy 2022-03-05 2022-03-05 Outpatient MHIE MHIE [id number] Memoria 11:00:00 11:00:00 08 maria d Dandy 2022-03-05 2022-03-05 Outpatient GALLO MitchellMISCHER [id number] 11:00:00 11:00:00 Ignacio 08 Db 2022-02-12 2022-02-13 Outpatient nullFlavo MNA [id number] Memoria 15:15:00 04:59:59 r Neurology 07 maria d Lapel Dandy 2022-02-12 2022-02-12 Outpatient WYATT MitchellSCHER MHMISCHER [id number] 10:15:00 23:59:59 Ignacio 07 Db 2022-02-12 2022-02-12 Outpatient MHIE MHIE [id number] Memoria 10:15:00 10:15:00 07 maria d Dorman 2021-04-08 2021-04-08 Ambulatory nullFlavo MNA [id number] Memoria 16:00:00 16:00:00 Pre-Reg r Neurology 06 l Lapel Dandy 2021-04-08 2021-04-08 Outpatient MHIE MHIE [id number] Memoria 11:00:00 11:00:00 06 maria d Dandy 2021-04-08 2021-04-08 Outpatient GALLO MitchellSCHSANTOSH [id number] 11:00:00 11:00:00 Ignacio 06 Db 2021-01-13 2021-01-13 Laboratory Lab, Adc Fam Pob I [facility] 1.2. [id number] Univers 18:03:23 18:23:23 Only [facility] [id number] [facility] [id number] Kojo as Professio [phone] [address] Office [facility] 2021-01-13 2021-01-13 Outpatient Chris COBIAN [facility] [id number] Univers 18:00:00 18:00:00 [facility] 2021-01-07 2021-01-08 Outpatient nullFlavo MNA [id number] Memoria 16:45:00 04:59:59 r Neurology 05 l Tom Dorman 2021-01-07 2021-01-07 Outpatient GALLO Mitchell JADESCHER [id number] 11:45:00 23:59:59 Ignacio Nathanael Ace 2021-01-07 2021-01-07 Outpatient MHIE MHIE [id number] Memoria 11:45:00 11:45:00 05 maria d Dandy 2021-01-06 2021-01-06 Ambulatory nullFlavo MNA [id number] Memoria 16:00:00 16:00:00 Pre-Reg r Neurology 04 l Lapel Dandy 2021-01-06 2021-01-06 Outpatient GALLO MitchellSCHER [id number] 11:00:00 11:00:00 Ignacio 04 Db 2020-12-31 2020-12-31 Outpatient MHIE MHIE [id number] Memoria 15:45:00 15:45:00 04 l Dandy 2020-10-02 2020-10-03 Outpatient nullFlavo MNA [id number] Memoria 21:30:00 05:59:59 r Neurology 03 l Tom Dnady 2020-10-02 2020-10-02 Outpatient WYATT MitchellSCHER MISCHER [id number] 15:30:00 23:59:59 Ignacio 03 Db 2020-10-02 2020-10-02 Outpatient MHIE MHIE [id number] Memoria 15:30:00 15:30:00 03 l Dandy 2020-09-04 2020-09-05 Outpatient nullFlavo MNA [id number] Memoria 21:45:00 05:59:59 r Neurology 02 l Lapel Dandy 2020-09-04 2020-09-04 Outpatient WYATT MitchellSCHER MISCHER [id number] 15:45:00 23:59:59 Ignacio Db 2020-09-04 2020-09-04 Outpatient MHIE MHIE [id number] Memoria 15:45:00 15:45:00 [facility] 2020-08-23 Orders Doctor [id number] Univers 00:00:00 00:00:00 Only Unassigned, LEANNE [id number] ity of [place] [facility] 4.2.7.2.686 Kojo as [phone] [address] 2020-08-07 2020-08-08 Outpatient nullFlavo MNA [id number] Memoria 22:00:00 05:59:59 r Neurology 00 l Tom Dorman 2020-08-07 2020-08-07 [id number] 16:00:00 23:59:59 Ignacio 00 [facility] 2020-08-07 2020-08-07 Outpatient MHIE MHIE [id number] Memoria 16:00:00 16:00:00 00 maria d Dorman 2020-08-06 2020-08-06 Ambulatory nullFlavo MNA [id number] Memoria 21:45:00 21:45:00 Pre-Reg r Neurology 01 l Tom Dorman 2020-08-06 2020-08-06 Outpatient WYATT MitchellSCHER MISCHER [id number] 15:45:00 15:45:00 Ignacio 01 Db 2020-07-04 2020-07-[address] [facility] [id number] Univers 20:20:00 22:32:00 Wellington Hui 350.1.13.10 i [id number] [place] [phone] [address] 2020-05-18 2020-05-18 Outpatient R [facility] [id number] Univers 14:00:00 14:00:00 FLORESITA ity of [facility] 2020-05-18 2020-05-18 Laboratory Lab, [facility] [id number] 12:48:16 13:08:16 Only Fam Pob I Health [id number] [place] [id number] Professio [phone] nal [facility] Office Building One 2020-05-18 2020-05-18 Laboratory Lab, [facility] Fam Pob I [facility] 1.2. 840.114 [id number] Univers 12:48:16 13:08:16 Only Esther Ruckeralmaz Dietrich [id number] ity fav[place] [id number] Kojo as Professio [phone] Wy dical [address] Office Building One Results Test Description Test Time Test Comments Results Result Comments Source ANEMIA STUDY 2020-08-08 12:53:00 Test Item Value Reference Range Interpretation Comme nts Vitamin B12 Lvl (test code = Vitamin B12 Lvl) 263 197-2505 [facility] [place] [facility]2020-11-05 12:53:00 Test Item Value Reference Range Interpretation Comments Glucose Lvl (test code = Glucose Lvl) 95 65-99 [facility] [place] [facility]2020-11-05 12:53:00 Test Item Value Reference Range Interpretation Comments BUN (test code = BUN) 11 7-25 [facility] [place] [facility]2020-11-05 12:53:00 Test Item Value Reference Range Interpretation Comments Creatinine Lvl (test code = Creatinine 0.71 0.50-1.10 Lvl) [facility] [place] [facility]2020-11-05 12:53:00 Test Item Value Reference Range Interpretation Comments eGFR NON-AFR. PALAUAN (test code = 114 eGFR NON-AFR. PALAUAN) [place] [id number] 12:53:00 Test Item Value Reference Range Interpretation Comments eGFR (test code = eGFR 132 ) [place] 071690-11-05 12:53:00 Test Item Value Reference Range Interpretation Comments B/C Ratio (test code = B/C NOT APPLICABLE 6-22 Ratio) [place] [address]-11-05 12:53:00 Test Item Value Reference Range Interpretation Comments Sodium Lvl (test code = Sodium Lvl) 136 135-146 [place] 071690-11-05 12:53:00 Test Item Value Reference Range Interpretation Comments Potassium Lvl (test code = Potassium 4.0 3.5-5.3 Lvl) [place] [id number] 12:53:00 Test Item Value Reference Range Interpretation Comments Chloride Lvl (test code = Chloride Lvl) 104 98-110 [place] 071690-11-05 12:53:00 Test Item Value Reference Range Interpretation Comments CO2 (test code = CO2) 26 20-32 [place] [address]-11-05 12:53:00 Test Item Value Reference Range Interpretation Comments Calcium Lvl (test code = Calcium Lvl) 9.3 8.6-10.2 [place] [id number] 12:53:00 Test Item Value Reference Range Interpretation Comments Total Protein (test code = Total 7.1 6.1-8.1 Protein) [place] 071690-11-05 12:53:00 Test Item Value Reference Range Interpretation Comments Albumin Lvl (test code = Albumin Lvl) 4.1 3.6-5.1 [place] 071690-11-05 12:53:00 Test Item Value Reference Range Interpretation Comments Globulin (test code = Globulin) 3.0 1.9-3.7 [place] [address]-11-05 12:53:00 Test Item Value Reference Range Interpretation Comments A/G Ratio (test code = A/G Ratio) 1.4 1.0-2.5 [place] [address]-11-05 12:53:00 Test Item Value Reference Range Interpretation Comments Bili Total (test code = Bili Total) 0.8 0.2-1.2 [facility] [place] [facility]2020-11-05 12:53:00 Test Item Value Reference Range Interpretation Comments Alk Phos (test code = Alk Phos) 56 31-125 [facility] [place] [facility]2020-11-05 12:53:00 Test Item Value Reference Range Interpretation Comments ASPARTATE TRANSAMINASE (test code = 17 10-30 ASPARTATE TRANSAMINASE) [facility] [place] [facility]2020-11-05 12:53:00 Test Item Value Reference Range Interpretation Comments ALANINE AMINOTRANSFERASE (test code = 22 6-29 ALANINE AMINOTRANSFERASE) [id number] 12:53:00 Test Item Value Reference Range Interpretation Comments WBC X 10x3 (test code = WBC X 10x3) 4.5 3.8-10.8 [facility] [id number] 12:53:00 Test Item Value Reference Range Interpretation Comments RBC X 10x6 (test code = RBC X 10x6) 4.71 3.80-5.10 [facility] [id number] 12:53:00 Test Item Value Reference Range Interpretation Comments Hgb (test code = Hgb) 11.2 11.7-15.5 [place] [id number] 12:53:00 Test Item Value Reference Range Interpretation Comments Hct (test code = Hct) 36.7 35.0-45.0 [facility] [id number] 12:53:00 Test Item Value Reference Range Interpretation Comments MCV (test code = MCV) 77.9 80.0-100.0 [place] [id number] 12:53:00 Test Item Value Reference Range Interpretation Comments MCH (test code = MCH) 23.8 pg 27.0-33.0 [place] 289540-11-05 12:53:00 Test Item Value Reference Range Interpretation Comments MCHC (test code = MCHC) 30.5 32.0-36.0 [place] 289540-11-05 12:53:00 Test Item Value Reference Range Interpretation Comments RDW (test code = RDW) 13.7 11.0-15.0 [place] 289540-11-05 12:53:00 Test Item Value Reference Range Interpretation Comments Platelet (test code = Platelet) 253 140-400 [facility] TempleAcmcbenAJEZVOTQPA1350-56-06 12:53:00 Test Item Value Reference Range Interpretation Comments MPV (test code = MPV) 11.5 7.5-12.5 [facility]krqbfcDQXCLUDIGC2387-69-42 12:53:00 Test Item Value Reference Range Interpretation Comments Neutrophils # (test code = Neutrophils 2102 0859-1603 #) [facility] TempleTtbjxezHNYWABXAYV1576-24-17 12:53:00 Test Item Value Reference Range Interpretation Comments Lymphocytes # (test code = Lymphocytes 7252 547-6431 #) [facility] TempleWezfkkwZSGRWRDDRV5881-84-78 12:53:00 Test Item Value Reference Range Interpretation Comments Monocytes # (test code = Monocytes #) 459 200-950 [facility] HospitalQtbnxssAUABNNIPVW4657-78-57 12:53:00 Test Item Value Reference Range Interpretation Comments Eosinophils # (test code = Eosinophils 351 15-500 #) [facility] Temple[id number] 12:53:00 Test Item Value Reference Range Interpretation Comments Basophils # (test code 41 See_Comment [Aut omated message] The = Basophils #) system which generated this result tra nsmitted reference range : <=200. The reference r meek was not used to int erpret this result as normal/abnormal . [facility] Tem[id number] 12:53:00 Test Item Value Reference Range Interpretation Comments Segs (test code = Segs) 46.7 [facility] Temple[id number] 12:53:00 Test Item Value Reference Range Interpretation Comments Lymphocytes (test code = Lymphocytes) 34.4 [facility] TempleTxehyheIICUYEDRUH8024-96-01 12:53:00 Test Item Value Reference Range Interpretation Comments Monocytes (test code = Monocytes) 10.2 [facility] HospitalIfqxeynSIQWGGYVRR5457-58-19 12:53:00 Test Item Value Reference Range Interpretation Comments Eosinophils (test code = Eosinophils) 7.8 [facility] Temp[id number] 12:53:00 Test Item Value Reference Range Interpretation Comments Basophils (test code = Basophils) 0.9 [id number] 12:53:00 Test Item Value Reference Range Interpretation Comments Sed Rate (test code = Sed Rate) 6 [id number] 12:53:00 Test Item Value Reference Range Interpretation Comments DAYNE (test code = DAYNE) NEGATIVE [facility]EvbjkkrZJGLWGXDMM5822-07-97 12:53:00 Test Item Value Reference Range Interpretation Comments APARNA Ser Interp (test code = APARNA SEE COMMENT Ser Interp) [id number] 12:53:00 Test Item Value Reference Range Interpretation Comments RF Qnt (test code = RF Qnt) no gt [facility]HktqvopJOSPZYGFSZ0321-06-29 12:53:00 Test Item Value Reference Range Interpretation Comments C-REACTIVE PROTEIN (test code = 0.6 C-REACTIVE PROTEIN) [id number] 02:52:00 Test Item Value Reference Range Interpretation Comments APPEARANCE (test code = Clear Clear 7363697798) COLOR (test code = Straw Yellow A 9170694534) PH (test code = 4.8-8.0 2345653022) SP GRAVITY (test code = 1.003-1.030 3698984519) GLU U QUAL (test code = Normal Normal 4839228254) BLOOD (test code = Negative Negative 0371361100) KETONES (test code = Negative Negative 5324734989) PROTEIN (test code = Negative Negative 2887-8) UROBILIN (test code = Normal Normal 2924951440) BILIRUBIN (test code = Negative Negative 9447968090) NITRITE (test code = Negative Negative 4378853965) LEUK TANIA (test code = Negative Negative 2771311474) RBC/HPF (test code = See_Comment [Autom ated message] 0130004829) The system Cont[employer] generated this result transmitted ref erence range: 0 - 3 HP F. The reference range was not used to int erpret this result as normal/abnormal . WBC/HPF (test code = See_Comment [Autom ated message] 9667021327) The system [employer] generated this result transmitted ref erence range: 0 - 5 HP F. The reference range was not used to int erpret this result as normal/abnormal . BACTERIA (test code = Few Negative A 0084929356) SQ EPITH (test code = HPF 3064960941) Lab Interpretation (test Abnormal code = 34532-0) [facility] METABOLIC PANEL (NA, K, CL, CO2, GLUCOSE, BUN, CREATININE, CA)2020-07-05 02:50:00 Test Item Value Reference Range Interpretation Comments NA (test code = 137 mmol/L 135-145 5545528829) K (test code = 4.1 mmol/L 3.5-5 4618317358) CL (test code = 103 mmol/L 98-108 1969043554) CO2 TOTAL (test code = 27 mmol/L 23-31 6264646424) AGAP (test code = 2-16 9754658678) BUN (test code = 10 mg/dL 7-23 6112725455) GLUCOSE (test code = 90 mg/dL 70-110 5132712471) CREATININE (test code 0.59 mg/dL 0.5-1.04 = 2475183636) CALCIUM (test code = 10.3 mg/dL 8.6-10.6 5256902185) eGFR Calculation mL/min/1.73m2 (Non-) (test code = 6731409164) eGFR Calculation mL/min/1.73m2 () (test code = 6615018166) MARTY (test code = MARTY) Association of [...] or urine or abnormalities in imaging tests). [facility] WITHOUT [id number] 02:35:00 Test Item Value Reference Range Interpretation Comments WBC (test code = 6690-2) See_Comment [A utomated message] The system Cont[employer] generated this result transmit gayatri reference range : 4.30 - 11.10 10*3/?L. The reference range was not used to interpret this result as normal/abnormal . RBC (test code = 789-8) See_Comment [Au tomated message] The system [employer] generated this result transmit gayatri reference range [...] 777-3) See_Comment [Au tomated message] The system [employer] generated this result transmit gayatri reference range : 166 - 358 10*3/?L. The reference range was not used to interpret this result as normal/abnormal . MPV (test code = 11.9 fL 9.5-12.9 86064-3) RDW-CV (test code = 13.5 % 12-15.5 788-0) RDW-SD (test code = 36.5 fL 39-49.9 L 96575-8) NRBC x10^3 (test code = <0.01 See_Comment [Au tomated message] 3934467776) The system [employer] generated this result transmit gayatri reference range : 10*3/?L. The reference range was not used to interpret this result as normal/abnormal . NRBC/100 WBC (test code See_Comment [Au tomated message] = 2226175400) The system [facility] generated this result transmit gayatri reference range : 0.0 - 10.0 /100 WBC s. The reference r meek was not used to interpret this result as normal/abnormal . IPF % (test code = 2193698268) Lab Interpretation (test Abnormal code = 31072-7) [facility] [id number] 02:17:[address] headCT HEAD WO CONTRAST HISTORY: Female 29 years Headache, acute, severe, worst BAUM of life COMPARISON: None TECHNIQUE: Routine CT head without contrast FINDINGS: The ventricles and cerebral sulci are normal in caliber and configuration.No hydrocephalus, midline shift or pathological extra-axial fluidcollection is present. The basal cisterns are unremarkable. No acute intracranial hemorrhage or mass effect is present. The walls-whitematter differentiation is preserved. No parenchymal attenuation abnormalityis present. The calvarium and skull base are unremarkable. The mastoid aircells and v isualized paranasal air sinuses are clear. [facility], Radiant Results Inft User - 07/04/2020 9:18 PM CDTCT HEAD WO CONTRASTHISTORY: Female 29 years Headache, acute, severe, worst BAUM of life COMPARISON: NoneTECHNIQUE: Routine CT head without contrastFINDINGS:The ventricles and cerebral sulci are normal in caliber and configuration.No hydrocephalus, midline shift or pathological extra-axial fluidcollection is present. The basal cisterns are unremarkable.No acute intracranial hemorrhage or mass effect is present. The walls-whitematter differentiation is preserved. No parenchymal attenuation abnormalityis present. The calvarium and skull base are unremarkable. The mastoid aircells and visualized paranasal air sinuses are clear.IMPRESSIONNormal CT headUnJoint [facility] ResourcesPOCT [id number] 02:01:00 Test Item Value Reference Range Interpretation Comments POCT PREG (test code = 1605) negative On board controls acceptable with present C Line (test code = 3574) POCT PREG LOT # (test code = 3575) [id number] POCT PREG TEST DATE (test 2021-08-03 code = 3576) Lab Interpretation (test code = Normal 89215-7) [facility]"
[2023-04-12] MEDS ORDERED: NA CHLORIDE 0.9% 1,000 ML ONE (18:47)
[2023-04-12] MEDS ORDERED: METOCLOPRAMIDE 10 MG/2mL INJ ONE (18:47)
[2023-04-12 18:57] LABS: Specific Gravity 1.028 (1.005-1.030)
[2023-04-12 18:59] LABS: Urine Bacteria <20 /HPF (<20); Urine Crystals Unidentified Few /HPF (None Seen)
[2023-04-12 18:59] LABS: Absolute Lymphocytes (CBC) 2.1 K/uL (0.7-4.9); Hematocrit 34.7 % (36.0-45.0); Lymphocytes % 40.1 % (15.3-44.8); MCV 74.8 fL (80-100); MPV 8.6 fL (7.6-11.3); RBC Red Blood Cell Count 4.64 M/uL (3.86-4.86)
[2023-04-12] MEDS ORDERED: DIPHENHYDRAMINE 50 MG/ML VIAL ONE (19:02)
[2023-04-12] MEDS ORDERED: KETOROLAC 30 MG/ML INJ ONE (19:02)
[2023-04-12] MEDS ORDERED: ONDANSETRON 4 MG/2 ML VIAL ONE (19:03)
[2023-04-12 19:10] LABS: Potassium 3.6 mEq/L (3.5-5.1)
--- NOTE | 2023-04-12 20:09 | ER ---
Nurse's Notes [facility] Name: Lalitha Valdes Age: 32 yrs Sex: Female : 1990 Arrival Date: 04/12/2023 Time: 17:48 Bed 16 Private MD: Diagnosis: Headache Presentation: 04/12 18:04 Chief complaint: Patient states: BAUM x2 DAYS, NO RELIEF WITH OTC MEDS. Coronavirus bp screen: At this time, the client does not indicate any symptoms associated with coronavirus-19. Ebola Screen: No symptoms or risks identified at this time. Initial Sepsis Screen: Does the patient meet any 2 criteria? No. Patient's initial sepsis screen is negative. Does the patient have a suspected source of infection? No. Patient's initial sepsis screen is negative. Risk Assessment: Do you want to hurt yourself or someone else? Patient reports no desire to harm self or others. Onset of symptoms is unknown. 18:04 Method Of Arrival: Ambulatory bp 18:04 Acuity: JUAN PABLO 3 bp Triage Assessment: 18:05 Headache History: The patient has had previous headaches and this one is similar to bp previous episodes. General: Appears uncomfortable. General: Behavior is cooperative, appropriate for age. Pain: Complains of pain in head Pain currently is 7 out of 10 on a pain scale. Pain began 2-3 days ago. Also complains of nausea. EENT: No deficits noted. Neuro: Reports headache. Cardiovascular: No deficits noted. Respiratory: No deficits noted. GI: No signs and/or symptoms were reported involving the gastrointestinal system. Historical: - Home Meds: 18:05 amitriptyline 10 mg Oral tab 1 tab once daily [Active]; Dexilant 60 mg Oral CpDB twice bp a day [Active]; Lexapro 10 mg Oral tab 1 tab once daily [Active]; Protonix 40 mg Oral TbEC 1 tab once daily [Active]; - PMHx: 18:05 Anxiety; gastritis; Migraines; mitral valve prolapse; bp - PSHx: 18:05 Cholecystectomy; cyst removed from left ovary; bp - Immunization history:: Adult Immunizations up to date. - Social history:: Smoking status: Patient denies any tobacco usage or history of. Screenin:[address] [facility] ED Fall Risk Assessment (Adult) History of falling in the last 3 months, ko1 including since admission No falls in past 3 months (0 pts) Confusion or Disorientation No (0 pts) Intoxicated or Sedated No (0 pts) Impaired Gait No (0 pts) Mobility Assist Device Used No (0 pt) Altered Elimination No (0 pt) Score/Fall Risk Level 0 - 2 = Low Risk Oriented to surroundings, Maintained a safe environment, Educated pt \T\ family on fall prevention, incl call for assistance when getting out of bed, Assessed \T\ reinforced patient's understanding of fall precautions, Provided non-skid footwear, Hourly rounding (assess needs \T\ fall precautionary measures) done, Used ambulatory aids as needed (educated on \T\ assisted with), Used gait belt as appropriate. Abuse screen: Denies threats or abuse. Denies injuries from another. Nutritional screening: No deficits noted. Tuberculosis screening: No symptoms or risk factors identified. Assessment: 18:40 General: Appears in no apparent distress. uncomfortable, Behavior is calm, cooperative, ko1 appropriate for age. Pain: Complains of pain in forehead. Neuro: No deficits noted. Cardiovascular: No deficits noted. Respiratory: No deficits noted. GI: Reports nausea. : No deficits noted. EENT: Reports pain in forehead. Derm: No deficits noted. Musculoskeletal: No deficits noted. 19:10 Reassessment: No changes from previously documented assessment. Patient and/or family vc1 updated on plan of care and expected duration. Pain level reassessed. Patient is alert, oriented x 3, equal unlabored respirations, skin warm/dry/pink. Assumed care of pt from LESLIE Garcia. Vital Signs: 18:04 BP 129 / 81; Pulse 79; Resp 16; Temp 97.3; Pulse Ox 100% ; Weight 103.42 kg; Height 5 bp ft. 9 in. ; 19:22 BP 123 / 91; Pulse 77; Resp 16; Pulse Ox 100% ; vc1 18:04 Body Mass Index 33.67 (103.42 kg, 175.26 cm) bp ED Course: 17:55 Patient arrived in ED. rg4 17:55 Jonathan Blevins PA is PHCP. cp 17:55 Jonathan Merritt MD is Attending Physician. cp 18:05 Triage completed. bp 18:34 Radha Briones RN is Primary Nurse. ko1 18:40 Inserted saline lock: 22 gauge in left antecubital area, using aseptic technique. Blood ko1 collected. 18:40 Patient has correct armband on for positive identification. Bed in low position. Call ko1 light in reach. Side rails up X 1. Provided Education on: labs/meds. Door closed. Noise minimized. Lights dimmed. Warm blanket given. 18:51 PREGU Sent. ko1 18:51 Urine Microscopic Only Sent. ko1 18:51 BMP Sent. ko1 18:51 CBC with Diff Sent. ko1 20:34 No provider procedures requiring assistance completed. IV discontinued, intact, vc1 bleeding controlled, No redness/swelling at site. Pressure dressing applied. Administered Medications: 18:51 Drug: NS 0.9% IV 1000 ml Route: IV; Rate: 1 bolus; Site: left antecubital; ko1 18:51 Drug: metoCLOPramide IVP 10 mg Route: IVP; Site: left antecubital; ko1 19:01 Drug: Ondansetron IVP 4 mg Route: IVP; Site: left antecubital; ko1 19:01 Drug: diphenhydrAMINE IVP 25 mg Route: IVP; Site: left antecubital; ko1 19:01 Drug: Ketorolac IVP 15 mg Route: IVP; Site: left antecubital; ko1 Medication: 18:40 VIS not applicable for this client. ko1 Outcome: 20:08 Discharge ordered by . cp 20:34 Discharged to home ambulatory. vc1 20:34 Condition: good 20:34 Discharge instructions given to patient, Instructed on discharge instructions, follow up and referral plans. medication usage, Demonstrated understanding of instructions, follow-up care, medications, Prescriptions given X 2. 20:35 Patient left the ED. vc1 Signatures: Jonathan Blevins PA PA cp Garcia, Rubi rg4 Earl Nair, RN RN Lexis Blanco RN RN vc1 Radha Briones RN RN ko1
--- NOTE | 2023-04-12 20:09 | EDPHYS ---
Physician Documentation [facility] Name: Lalitha Valdes Age: 32 yrs Sex: Female : 1990 Arrival Date: 04/12/2023 Time: 17:48 Bed 16 Private MD: ED Physician Jonathan Merirtt HPI: 04/12 18:24 This 32 yrs old Black Female presents to ER via Ambulatory with complaints of Headache, cp Vertigo. 18:24 The patient complains of pain to the forehead. The patient describes the headache as cp aching. Onset: The symptoms/episode began/occurred 2 day(s) ago. 18:25 Associated signs and symptoms: Pertinent positives: dizziness, Pertinent negatives: cp altered mental status, fever, neck stiffness, vomiting, weakness. 18:25 Severity of symptoms: in the emergency department the pain is unchanged, despite home cp interventions. Headache History: The patient has had previous headaches and this one is similar to previous episodes. Historical: - Home Meds: 18:05 amitriptyline 10 mg Oral tab 1 tab once daily [Active]; Dexilant 60 mg Oral CpDB twice bp a day [Active]; Lexapro 10 mg Oral tab 1 tab once daily [Active]; Protonix 40 mg Oral TbEC 1 tab once daily [Active]; - PMHx: 18:05 Anxiety; gastritis; Migraines; mitral valve prolapse; bp - PSHx: 18:05 Cholecystectomy; cyst removed from left ovary; bp - Immunization history:: Adult Immunizations up to date. - Social history:: Smoking status: Patient denies any tobacco usage or history of. ROS: 18:30 Constitutional: Negative for body aches, chills, fever, poor PO intake. cp 18:30 Cardiovascular: Negative for chest pain, edema, palpitations. cp 18:30 Respiratory: Negative for cough, shortness of breath, wheezing. 18:30 Neuro: Positive for dizziness, headache, Negative for numbness, syncope, weakness. 18:30 Eyes: Negative for injury, pain, redness, and discharge. cp 18:30 ENT: Negative for drainage from ear(s), ear pain, sore throat, difficulty swallowing, cp difficulty handling secretions. 18:30 Abdomen/GI: Negative for abdominal pain, vomiting, diarrhea, constipation. 18:30 : Negative for urinary symptoms. 18:30 All other systems are negative. Exam: 18:33 Constitutional: The patient appears in no acute distress, alert, awake, non-toxic, well cp developed, well nourished, uncomfortable. 18:33 Head/Face: Normocephalic, atraumatic. cp 18:33 Eyes: Periorbital structures: appear normal, Pupils: equal, round, and reactive to light and accomodation, Extraocular movements: intact throughout, Conjunctiva: normal, no exudate, no injection, Sclera: no appreciated abnormality, Lids and lashes: appear normal, bilaterally. 18:33 ENT: External ear(s): are unremarkable, Nose: is normal, Mouth: Lips: moist, Oral mucosa: pink and intact, moist, Posterior pharynx: is normal, airway is patent, no erythema, no exudate. 18:33 Neck: ROM/movement: is normal, is supple, without pain, no range of motions limitations, no meningismus. 18:33 Chest/axilla: Inspection: normal. 18:33 Cardiovascular: Rate: normal, Rhythm: regular. 18:33 Respiratory: the patient does not display signs of respiratory distress, Respirations: normal, no use of accessory muscles, no retractions, labored breathing, is not present, Breath sounds: are clear throughout, no decreased breath sounds, no stridor, no wheezing. 18:33 Abdomen/GI: Exam negative for discomfort, distension, guarding, Inspection: abdomen appears normal. 18:33 Back: pain, is absent, ROM is normal. 18:33 Neuro: Orientation: to person, place \T\ time. Mentation: is normal, Cerebellar function: is grossly normal, Motor: moves all fours, strength is normal, Sensation: is normal, Gait: is steady, at a normal pace, without difficulty. Vital Signs: 18:04 BP 129 / 81; Pulse 79; Resp 16; Temp 97.3; Pulse Ox 100% ; Weight 103.42 kg; Height 5 bp ft. 9 in. ; 19:22 BP 123 / 91; Pulse 77; Resp 16; Pulse Ox 100% ; vc1 18:04 Body Mass Index 33.67 (103.42 kg, 175.26 cm) bp MDM: 18:14 Patient medically screened. cp 19:00 Differential diagnosis: cluster headache, intracerebral hemorrhage, meningitis, cp meningoencephalitis, migraine, neoplasm, sinusitis, subarachnoid bleed, subdural hematoma, tension headache. 20:07 Data reviewed: vital signs, nurses notes, lab test result(s). 20:07 I considered the following discharge prescriptions or medication management in the emergency department Medications were administered in the Emergency Department. See MAR. Test considered but Not performed: CT: head. Counseling: I had a detailed discussion with the patient and/or guardian regarding: the historical points, exam findings, and any diagnostic results supporting the discharge/admit diagnosis, lab results, to return to the emergency department if symptoms worsen or persist or if there are any questions or concerns that arise at home. Response to treatment: the patient's symptoms have markedly improved after treatment, and as a result, I will discharge patient. 04/12 18:32 Order name: CBC with Diff; Complete Time: 19:59 04/12 20:00 Interpretation: Normal except: HGB 10.8; HCT 34.7; MCV 74.8; MCH 23.2; MCHC 31.0. 04/12 18:32 Order name: BMP; Complete Time: 19:59 04/12 18:32 Order name: Urine Microscopic Only; Complete Time: 19:59 04/12 20:00 Interpretation: URBC 5-10; Reviewed. 04/12 18:32 Order name: PREGU; Complete Time: 19:59 04/12 18:32 Order name: IV; Complete Time: 18:51 04/12 18:42 Order name: Misc. Order: needs ride home; Complete Time: 18:56 Administered Medications: 18:51 Drug: NS 0.9% IV 1000 ml Route: IV; Rate: 1 bolus; Site: left antecubital; ko1 18:51 Drug: metoCLOPramide IVP 10 mg Route: IVP; Site: left antecubital; ko1 19:01 Drug: Ondansetron IVP 4 mg Route: IVP; Site: left antecubital; ko1 19:01 Drug: diphenhydrAMINE IVP 25 mg Route: IVP; Site: left antecubital; ko1 19:01 Drug: Ketorolac IVP 15 mg Route: IVP; Site: left antecubital; ko1 Disposition Summary: 04/12/23 20:08 Discharge Ordered Location: Home cp Problem: an acute exacerbation cp Symptoms: have improved cp Condition: Stable cp Diagnosis - Headache cp Followup: cp - With: Private Physician - When: 2 - 3 days - Reason: Worsening of condition Discharge Instructions: - Discharge Summary Sheet cp - Migraine Headache cp Forms: - Medication Reconciliation Form cp - Thank You Letter cp - Antibiotic Education cp - Prescription Opioid Use cp - Patient Portal Instructions.htm cp Prescriptions: - Ibuprofen 800 mg Oral Tablet - take 1 tablet by ORAL route every 8 hours As needed take with food; 30 tablet; cp Refills: 0, Product Selection Permitted - Zofran 4 mg Oral Tablet - take 1 tablet by ORAL route every 12 hours As needed; 20 tablet; Refills: 0, cp Product Selection Permitted Signatures: Dispatcher [employer] EDMS Jonathan Blevins PA PA cp Peltier, Brian, RN RN bp Radha Briones RN RN ko1
[2023-04-12 21:34] VITALS: TEMP 97.3; O2SAT 100
[2023-04-12 21:35] VITALS: BP 123/91
== END 2023-04-12 20:35 | disposition home or self-care (01) ==
LOC: ER 17:48
DX: R51.9 Headache, unspecified (principal); R42 Dizziness and giddiness; F41.9 Anxiety disorder, unspecified
CPT/HCPCS: 85025; 80048; 36415; 81025; 81015; 96375; 96374; 99284; J2765; J1200; J2405; J7030

== ENCOUNTER 2024-12-10 01:50 | Emergency (ER) | payer OTHER ==
[2024-12-10 03:46] LABS: Absolute Eosinophils 0.2 K/uL (0-0.5); Absolute Lymphocytes (CBC) 2.3 K/uL (0.7-4.9); Absolute Monocytes 0.5 K/uL (0.1-1.3); Absolute Neutrophil 3.7 K/uL (1.8-8.0); Basophils % 0.7 % (0-1.3); Eosinophils % 2.5 % (0-4.4); Hemoglobin 10.9 g/dL (12.0-15.0); Lymphocytes % 34.2 % (15.3-44.8); MCH 23.9 pg (27.0-35.0); MCV 74.7 fL (80-100); MPV 8.4 fL (7.6-11.3); Monocytes % 7.5 % (3.3-12.3); Neutrophils % 55.1 % (41.7-73.7); Nucleated Red Blood Cells % 0.1 % (0-0); Platelets 279 thou/uL (152-406); RBC Red Blood Cell Count 4.55 M/uL (3.86-4.86); Red Cell Distribution Width 14.5 % (12.1-15.2)
[2024-12-10] MEDS ORDERED: ONDANSETRON 4 MG/2 ML VIAL ONE (03:47)
[2024-12-10] MEDS ORDERED: KETOROLAC 30 MG/ML INJ ONE (03:47)
[2024-12-10] MEDS ORDERED: MORPHINE 4 MG/ML SYR ONE (03:48)
[2024-12-10] MEDS ORDERED: NA CHLORIDE 0.9% 1,000 ML ONE (03:49)
[2024-12-10 04:01] LABS: Albumin 3.3 g/dL (3.4-5.0); Albumin/Globulin Ratio 0.8 (1.1-1.8); Anion Gap 12.4 mEq/L (5.0-15.0); Bilirubin Total 0.5 mg/dL (0.2-1.0); Globulin 4.4 g/dL (2.3-3.5); Potassium 3.4 mEq/L (3.5-5.1); Protein, Total 7.7 g/dL (6.4-8.2)
[2024-12-10 04:36] LABS: Specific Gravity 1.024 (1.005-1.030)
[2024-12-10 04:42] LABS: Specific Gravity 1.024 (1.005-1.030); Sqamous Epithelial <5 /HPF (None Seen); Urine Bacteria None Seen /HPF (<20); Urine Bilirubin NEGATIVE (Negative); Urine Blood Negative (Negative); Urine Clarity Clear (Clear); Urine Color Light-Yellow (Yellow); Urine Culture Reflex Order NOT NEEDED; Urine Glucose NEGATIVE (Negative); Urine Ketones NEGATIVE (Negative); Urine Microscopic Reflex YN ORDER UMIC; Urine Nitrite NEGATIVE (Negative); Urine Protein TRACE (Negative); Urine RBC <5 /HPF (None Seen); Urine Urobilinogen Normal (Normal); Urine WBC <5 /HPF (<5); Urine pH 7.5 (5.0-7.0)
--- NOTE | 2024-12-10 06:40 | ER ---
Nurse's Notes [facility] Name: Lalitha Valdes Age: 34 yrs Sex: Female : 1990 Arrival Date: 12/10/2024 Time: 01:50 Bed 15 Private MD: Yoni Worrell Diagnosis: Other ovarian cysts Presentation: 12/10 03:14 Chief complaint: Patient states: PAIN STARTED ON THE LEFT LOWER QUADRANT THEN IT MOVED ha1 TO MY RIGHT LOWER QUADRANT . PAIN RLQ FOR THE PAST TWO DAYS. 03:14 Coronavirus screen: Client denies travel out of the [place] in the last 14 days. Ebola ha1 Screen: No symptoms or risks identified at this time. Initial Sepsis Screen: Does the patient meet any 2 criteria? No. Patient's initial sepsis screen is negative. Does the patient have a suspected source of infection? No. Patient's initial sepsis screen is negative. Risk Assessment: Do you want to hurt yourself or someone else? Patient reports no desire to harm self or others. Onset of symptoms was December 10, 2024. 03:14 Method Of Arrival: Wheelchair ha1 03:14 Acuity: JUAN PABLO 3 ha1 Triage Assessment: 03:14 General: Appears uncomfortable, Behavior is cooperative. Pain: Complains of pain in ha1 right lower quadrant Pain currently is 10 out of 10 on a pain scale. Quality of pain is described as throbbing. Neuro: Level of Consciousness is awake, alert, obeys commands, Oriented to person, place, time, situation. Cardiovascular: Capillary refill < 3 seconds Patient's skin is warm and dry. Respiratory: Airway is patent Respiratory effort is even, unlabored, Respiratory pattern is regular, symmetrical. GI: Abdomen is round non-distended, obese, Reports lower abdominal pain, nausea. 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 - Infectious Disease History:: Denies. - Social history:: Smoking status: Patient reports the use of cigarette tobacco products, denies chronic smoking, but will smoke occasionally. - Family history:: not pertinent. Screenin:15 [facility] ED Fall Risk Assessment (Adult) History of falling in the last 3 months, rg5 including since admission No falls in past 3 months (0 pts) Confusion or Disorientation No (0 pts) Intoxicated or Sedated No (0 pts) Impaired Gait No (0 pts) Mobility Assist Device Used No (0 pt) Altered Elimination No (0 pt) Score/Fall Risk Level 0 - 2 = Low Risk Oriented to surroundings, Maintained a safe environment, Hourly rounding (assess needs \T\ fall precautionary measures) done. 03:34 Abuse screen: Denies threats or abuse. Denies injuries from another. Nutritional ha1 screening: No deficits noted. Tuberculosis screening: No symptoms or risk factors identified. Assessment: 03:15 General: Appears uncomfortable, Behavior is calm, cooperative, appropriate for age. rg5 03:15 Pain: Complains of pain in abdomen Pain currently is 9 out of 10 on a pain scale. rg5 Quality of pain is described as aching, Pain began gradually. Neuro: Level of Consciousness is awake, alert, obeys commands, Oriented to person, place, time, situation. Cardiovascular: Denies chest pain, Patient's skin is warm and dry. Respiratory: Airway is patent Trachea midline Respiratory effort is even, Respiratory pattern is regular, symmetrical. GI: Bowel sounds present in left upper quadrant Abd is soft and non tender. : Reports cramping, pain. EENT: No deficits noted. Derm: Skin is intact, Skin is dry, Skin is normal, Skin temperature is warm. Musculoskeletal: Circulation, motion, and sensation intact. Range of motion: intact in all extremities. 04:00 Reassessment: No changes from previously documented assessment. rg5 05:00 Reassessment: No changes from previously documented assessment. Patient and/or family rg5 updated on plan of care and expected duration. Pain level reassessed. Patient is alert, oriented x 3, equal unlabored respirations, skin warm/dry/pink. 06:08 Reassessment: No changes from previously documented assessment. Patient and/or family rg5 updated on plan of care and expected duration. Pain level reassessed. Patient is alert, oriented x 3, equal unlabored respirations, skin warm/dry/pink. Vital Signs: 03:14 BP 132 / 80; Pulse 85; Resp 17 S; Temp 97.5(T); Pulse Ox 100% on R/A; Weight 95.71 kg; ha1 Height 5 ft. 8 in. ; Pain 10/10; 04:20 BP 111 / 71; Pulse 87; Resp 18; Pulse Ox 99% on R/A; Pain 9/10; rg5 06:21 BP 118 / 72; Pulse 76; Resp 18; Temp 98; Pulse Ox 97% on R/A; Pain 0/10; rg5 03:14 Body Mass Index 32.08 (95.71 kg, 172.72 cm) ha1 03:14 Pain Scale: Adult ha1 04:20 Pain Scale: Adult rg5 06:21 Pain Scale: Adult rg5 ED Course: 03:03 Patient arrived in ED. gm2 03:03 Omid Green MD is Attending Physician. rt 03:04 Yoni Worrell MD is Private Physician. gm2 03:15 No provider procedures requiring assistance completed. rg5 03:15 Patient has correct armband on for positive identification. Bed in low position. Call rg5 light in reach. Side rails up X 1. Client placed on continuous cardiac and pulse oximetry monitoring. NIBP monitoring applied. site monitor on. Pulse ox on. NIBP on. Door closed. Noise minimized. Warm blanket given. 03:15 Arm band placed on. rg5 03:32 Triage completed. ha1 03:39 Terence Kelly, LESLIE is Primary Nurse. rg5 03:45 Inserted saline lock: 20 gauge in left antecubital area, using aseptic technique. Blood af3 collected. Flushed with 10 mL NS. 04:10 US Pelvis Complete In Process Unspecified. EDMS 06:45 IV discontinued, bleeding controlled, No redness/swelling at site. Pressure dressing rg5 applied. 06:46 Provided Education on: post er care. rg5 Administered Medications: 04:07 Drug: TORadol - Ketorolac IVP 15 mg IVP once Route: IVP; Site: left antecubital; rg5 05:30 Follow up: Response: No adverse reaction; Pain is decreased rg5 04:07 Drug: Ondansetron IVP 4 mg IVP once; over 2 minutes Route: IVP; Site: left antecubital; rg5 05:30 Follow up: Response: No adverse reaction rg5 04:07 Drug: morphine IVP or IV 4 mg IVP once over 4 mins Route: IVP; Infused Over: 4 mins; rg5 Site: left antecubital; 05:30 Follow up: Response: No adverse reaction; Pain is decreased rg5 04:07 Drug: NS 0.9% IV 1000 ml IV at 1 bolus Per protocol; to be given as a bolus over 60 rg5 minutes Route: IV; Rate: 1 bolus; Site: left antecubital; 05:30 Follow up: IV Status: Completed infusion; IV Intake: 1000ml rg5 Medication: 03:15 VIS not applicable for this client. rg5 Intake: 05:30 IV: 1000ml; Total: 1000ml. rg5 Outcome: 06:40 Discharge ordered by . rt 06:46 Discharged to home ambulatory, rg5 06:46 Condition: stable 06:46 Discharge instructions given to patient, Instructed on discharge instructions, follow up and referral plans. Demonstrated understanding of instructions, follow-up care, medications, Prescriptions given X 1, 06:47 Patient left the ED. rg5 Signatures: Dispatcher [employer] EDMS Merna Rosales, RN RN ha1 Omid Green MD MD rt Nat Rothman gm2 Terence Kelly RN RN rg5 Madelyn Santa3
--- NOTE | 2024-12-10 06:40 | EDPHYS ---
Physician Documentation [facility] Name: Lalitha Valdes Age: 34 yrs Sex: Female : 1990 Arrival Date: 12/10/2024 Time: 01:50 Bed 15 Private MD: Yoni Worrell ED Physician Omid Green HPI: 12/10 05:17 This 34 yrs old Black Female presents to ER via Wheelchair with complaints of Abdominal rt Pain, Vaginal Pain. 05:17 Patient presents to the ED with about 2 days of a bilateral lower quadrant pain that rt has been intermittent, states that this is similar in character to previous ovarian cyst that she has had. She denies vaginal bleeding, dysuria, other acute complaints, symptoms are moderate in severity, aching nature, nonradiating, no other aggravating alleviating factors.. 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 - Infectious Disease History:: Denies. - Social history:: Smoking status: Patient reports the use of cigarette tobacco products, denies chronic smoking, but will smoke occasionally. - Family history:: not pertinent. ROS: 05:17 Constitutional: Negative for fever, chills, and weight loss, Cardiovascular: Negative rt for chest pain, palpitations, and edema, Respiratory: Negative for shortness of breath, cough, wheezing, and pleuritic chest pain, MS/Extremity: Negative for injury and deformity, Skin: Negative for injury, rash, and discoloration, Neuro: Negative for headache, weakness, numbness, tingling, and seizure, 05:17 Abdomen/GI: Positive for abdominal pain, nausea, Exam: 05:17 Constitutional: This is a well developed, well nourished patient who is awake, alert, rt and in no acute distress. Head/Face: Normocephalic, atraumatic. Chest/axilla: Normal chest wall appearance and motion. Nontender with no deformity. No lesions are appreciated. Cardiovascular: Regular rate and rhythm with a normal S1 and S2. No gallops, murmurs, or rubs. Normal PMI, no JVD. No pulse deficits. Respiratory: Lungs have equal breath sounds bilaterally, clear to auscultation and percussion. No rales, rhonchi or wheezes noted. No increased work of breathing, no retractions or nasal flaring. Skin: Warm, dry with normal turgor. Normal color with no rashes, no lesions, and no evidence of cellulitis. MS/ Extremity: Pulses equal, no cyanosis. Neurovascular intact. Full, normal range of motion. Neuro: Awake and alert, GCS 15, oriented to person, place, time, and situation. Cranial nerves II-XII grossly intact. Motor strength 5/5 in all extremities. Sensory grossly intact. Cerebellar exam normal. Normal gait. 05:17 Abdomen/GI: Tenderness to left lower, right lower quadrants with mild guarding, no rebound, distention, Vital Signs: 03:14 BP 132 / 80; Pulse 85; Resp 17 S; Temp 97.5(T); Pulse Ox 100% on R/A; Weight 95.71 kg; ha1 Height 5 ft. 8 in. ; Pain 10/10; 04:20 BP 111 / 71; Pulse 87; Resp 18; Pulse Ox 99% on R/A; Pain 9/10; rg5 06:21 BP 118 / 72; Pulse 76; Resp 18; Temp 98; Pulse Ox 97% on R/A; Pain 0/10; rg5 03:14 Body Mass Index 32.08 (95.71 kg, 172.72 cm) ha1 03:14 Pain Scale: Adult ha1 04:20 Pain Scale: Adult rg5 06:21 Pain Scale: Adult rg5 MDM: 03:18 Medical Screening Exam initiated rt 06:40 Differential diagnosis: Ovarian cyst, ovarian torsion, UTI. Data reviewed: vital signs, rt nurses notes, lab test result(s), radiologic studies. I considered the following discharge prescriptions or medication management in the emergency department Medications were administered in the Emergency Department. See MAR. Test considered but Not performed: CT: Symptoms significantly improving with treatment in the ED, patient upon reassessment states that the pain is mostly left-sided, suspect ovarian cyst is the etiology of the patient's presentation, is stable for outpatient care, return precautions discussed.. Care significantly affected by the following chronic conditions: Ovarian cyst. Counseling: I had a detailed discussion with the patient and/or guardian regarding the historical points, exam findings, and any diagnostic results supporting the discharge/admit diagnosis, lab results, radiology results, the need for outpatient follow up, to return to the emergency department if symptoms worsen or persist or if there are any questions or concerns that arise at home. Response to treatment: the patient's symptoms have markedly improved after treatment. 12/10 03:26 Order name: CBC with Diff; Complete Time: 04:45 rt 12/10 03:26 Order name: CMP; Complete Time: 04:45 rt 12/10 03:26 Order name: Lipase; Complete Time: 04:45 rt 12/10 03:26 Order name: Test, Urine; Complete Time: 04:45 rt 12/10 03:26 Order name: Urinalysis w/ reflexes; Complete Time: 04:45 rt 12/10 03:26 Order name: US Pelvis Complete rt 12/10 03:26 Order name: IV Saline Lock; Complete Time: 03:45 rt 12/10 03:26 Order name: Labs collected and sent; Complete Time: 03:45 rt Administered Medications: 04:07 Drug: TORadol - Ketorolac IVP 15 mg IVP once Route: IVP; Site: left antecubital; rg5 05:30 Follow up: Response: No adverse reaction; Pain is decreased rg5 04:07 Drug: Ondansetron IVP 4 mg IVP once; over 2 minutes Route: IVP; Site: left antecubital; rg5 05:30 Follow up: Response: No adverse reaction rg5 04:07 Drug: morphine IVP or IV 4 mg IVP once over 4 mins Route: IVP; Infused Over: 4 mins; rg5 Site: left antecubital; 05:30 Follow up: Response: No adverse reaction; Pain is decreased rg5 04:07 Drug: NS 0.9% IV 1000 ml IV at 1 bolus Per protocol; to be given as a bolus over 60 rg5 minutes Route: IV; Rate: 1 bolus; Site: left antecubital; 05:30 Follow up: IV Status: Completed infusion; IV Intake: 1000ml rg5 Disposition Summary: 12/10/24 06:40 Discharge Ordered Notes: Location: Home rt Problem: new rt Symptoms: have improved rt Condition: Stable rt Diagnosis - Other ovarian cysts rt Followup: rt - With: Private Physician - When: 2 - 3 days - Reason: Discharge Instructions: - Discharge Summary Sheet rt - Ovarian Cyst rt Forms: - Medication Reconciliation Form rt - Antibiotic Education rt - Prescription Opioid Use rt - Patient Portal Instructions rt - Leadership Thank You Letter rt Prescriptions: - Tramadol 50 mg Oral Tablet - take 1 tablet ORAL route every 8 hours as needed; 12 tablet; Refills: 0, rt Product Selection Permitted Signatures: Dispatcher [employer] EDMerna Jones, RN RN ha1 Omid Green MD MD rt Terence Kelly RN RN rg5 Corrections: (The following items were deleted from the chart) 03:27 03:27 CBC+H.LAB.BRZ ordered. EDMS EDMS 03:27 03:27 COMPREHENSIVE METABOLIC PANEL+C.LAB.BRZ ordered. EDMS EDMS 03:27 03:27 LIPASE+C.LAB.BRZ ordered. EDMS EDMS 03:27 03:27 Test, Urine+UC.LAB.BRZ ordered. EDMS EDMS 03:27 03:27 Urinalysis+U.LAB.BRZ ordered. EDMS EDMS
--- NOTE | 2024-12-10 07:02 | RAD REPORT ---
EXAM: US Pelvis Transabdominal, Complete and US Duplex Arterial/Venous of the Pelvis, Complete CLINICAL HISTORY: The patient is 34 years old and is Female; Pelvic pain, large cyst seen in left o vary. TECHNIQUE: Real-time complete transabdominal pelvic ultrasound with image documentation. Real-ti me duplex ultrasound scan of the arterial and venous flow of the pelvis with color Doppler flow and spectral waveform analysis. COMPARISON: No relevant prior studies available. FINDINGS: Uterus/cervix: Uterus is 10.8 x 5.5 x 4.7 cm. Endometrial thickness 5.1 mm. No myometrial mass. Right ovary: Right ovary 4.8 x 2.8 x 2.2 cm. No torsion. Left ovary: Left ovarian simple cyst 4.3 x 4.0 x 3.7 cm. Left ovary 4.2 x 5.8 x 4.8 cm. No torsion. Free fluid: No free fluid. Bladder: Unremarkable as visualized. Wall is normal thickness for degree of distention. IMPRESSION: Left ovarian benign functional cyst measuring 4.3 cm. No follow-up imaging is recommended. Reference: Radiology 2019 Nov;293(2):[id number] Electronically signed by: Charisma Haro MD 12/10/2024 06:31 AM CDT V2 Due to temporary technical issues with the PACS/LookUP[employer] reporting system, reports are being sign ed by the in-house radiologist without review as a courtesy to ensure prompt reporting the interpreting rad iologist is fully responsible for the content of the report. Transcribed Date/Time: 12/10/2024 7:02 AM
[2024-12-10 07:19] VITALS: BP 118/72; TEMP 98; O2SAT 97
== END 2024-12-10 06:47 | disposition home or self-care (01) ==
LOC: ER 01:50
DX: N83.291 Other ovarian cyst, right side (principal); F17.210 Nicotine dependence, cigarettes, uncomplicated
CPT/HCPCS: 96361; 85025; 81001; 36415; 81025; 83690; 80053; 76856; 96375; 96374; 99285; J2405; J7030